=== PATIENT | female | born 1935 | race Caucasian/White ===

== ENCOUNTER 2017-10-03 23:22 | Inpatient (IN) | payer MEDICARE ==
[2017-10-04] MEDS ORDERED: Albuterol Sulfate 2.5 mg/0.5 ml Neb ONE (00:36)
[2017-10-04] MEDS ORDERED: Azithromycin 500 MG in Sodium Chloride 0.9% 250 ML 250 ML IVPB SCH (00:45)
[2017-10-04 00:55] LABS: #Lymphocytes 0.3 thou/uL (1.20-3.40); #Monocytes 0.3 thou/uL (0.11-0.59); #Neutrophils 15.8 thou/uL (1.40-6.50); %Eosinophils 0.1 % (0.0-10.0); %Lymphocytes 1.6 % (21.0-51.0); %Monocytes 2.1 % (0.0-10.0); %Neutrophils 96.3 % (42.0-75.0); Hemoglobin 10.9 g/dL (12.0-16.0); Mean Corpuscular HGB CONC 30.5 g/dL (32.0-36.0); Mean Corpuscular Hemoglobin 26.4 pg (27.0-31.0); Mean Corpuscular Volume 86.5 fl (81.0-99.0); Mean Platelet Volume 6.2 fL (7.4-10.4); Platelet Count 349 thou/uL (130-400); RBC Distribution Width 12.5 % (11.5-14.5); Red Blood Cell (RBC) Count 4.14 mill/uL (4.20-5.40); White Blood Cell (WBC) Count 16.4 thou/uL (4.8-10.8)
[2017-10-04 01:05] LABS: ALT (SGPT) 19 U/L (8-55); AST (SGOT) 47 U/L (5-34); Albumin 3.5 g/dL (3.4-4.8); Alkaline Phosphatase 65 U/L (40-150); Anion Gap 16 mmol/L (10-20); BUN (Urea Nitrogen) 17 mg/dL (9.8-20.1); Bilirubin, Total 0.2 mg/dL (0.2-1.2); Calc. Creatinine Clearance 0 mL/min (70-130); Calcium 9.2 mg/dL (7.8-10.44); Carbon Dioxide 25 mmol/L (23-31); Chloride 97 mmol/L (98-107); Estimated GFR-MDRD 64; Globulin 3.3 g/dL (2.4-3.5); Glucose 112 mg/dL (83-110); Magnesium 1.9 mg/dL (1.6-2.6); Potassium 3.9 mmol/L (3.5-5.1); Protein, Total 6.8 g/dL (6.0-8.3); Sodium 134 mmol/L (136-145)
[2017-10-04 01:09] LABS: Troponin I 0.039 ng/mL (< 0.028)
[2017-10-04 01:12] LABS: CKMB 8.6 ng/mL (0-6.6)
[2017-10-04] MEDS ORDERED: Acetaminophen 325 MG TAB ONE (03:59)
[2017-10-04 04:43] LABS: Troponin I 0.033 ng/mL (< 0.028)
[2017-10-04] MEDS ORDERED: Acetaminophen 325 MG TAB PO PRN (05:25)
[2017-10-04] MEDS ORDERED: Albuterol Sulfate 2.5 mg/3 ml Neb NEB PRN (05:25)
[2017-10-04] MEDS ORDERED: Ondansetron HCl/PF 4 MG/2 ML Vial IVP PRN (05:25)
[2017-10-04] MEDS ORDERED: Ondansetron ODT 4 MG TAB SL PRN (05:25)
[2017-10-04] MEDS ORDERED: cefTRIAXone\\ROCEPHIN 1 GM, Syringe 0.4 ML in Sterile Water 9.6 ML SLOW IVP SCH (06:00)
--- NOTE | 2017-10-04 08:02 | CT ---
PRELIMINARY REPORT/[facility]/EMERGENCY AFTER HOURS PROCEDURE: EXAM: CT Head Without Intravenous Contrast CLINICAL HISTORY: 82 years old, female; Injury or trauma; Fall; Initial encounter; Blunt trauma (contusions or hematoma s); Consciousness not specified; Patient HX: S/P fall TECHNIQUE: Axial computed tomography images of the head/brain without intravenous contrast. COMPARISON: No relevant prior studies available. FINDINGS: Brain: Mild volume loss No hemorrhage. Mild white matter disease. No edema. Ventricles: Unremarkable. No ventriculomegaly. Bones/joints: Unremarkable. No acute fracture. Soft tissues: Unremarkable. Sinuses: Chronic right maxillary sinusitis with small air fluid level noted. Mild polypoid tissue the right ethmoid air cells and left sphenoid sinus Mastoid air cells: Unremarkable as visualized. No mastoid effusion. IMPRESSION: Question acute on chronic right maxillary sinusitis No intracranial hemorrhage.Please see discussion above. Thank you for allowing us to participate in the care of your patient. Dictated and Authenticated by: Stef Schilling MD 10/04/2017 2:11 AM Central Time ([place] & [place]) FINAL REPORT EMERGENT AFTER HOURS STUDY CT BRAIN NONCONTRAST: HISTORY: An 82-year-old female status post acute head trauma from fall. FINDINGS: There is no midline shift or any other mass effect. There is no evidence of acute intracranial hemor rhage, large cortical infarct, obstructive hydrocephalus, or extraaxial fluid collection. The calvar ium is intact. There is diffuse parenchymal volume loss. There are low attenuation areas in the whi te matter. These are nonspecific, but in a patient of this age, they are probably chronic ischemic w ty matter changes due to microvascular atherosclerosis. There is chronic severe partial opacificat ion of the right maxillary sinus with associated chronic osseous mural thickening of the vela of the right maxillary sinus. This report agrees with preliminary report by [facility]. IMPRESSION: 1) No acute intracranial findings. 2) Involutional changes and chronic ischemic white matter changes. 3) Long-standing chronic right maxillary sinusitis. orlin [] POS: [facility]
--- NOTE | 2017-10-04 08:05 | CT ---
PRELIMINARY REPORT/[facility]/EMERGENCY AFTER HOURS PROCEDURE: EXAM: CT Cervical Spine Without Intravenous Contrast CLINICAL HISTORY: 82 years old, female; Injury or trauma; Fall; Initial encounter; Blunt trauma (contusions or hematoma s); Consciousness not specified; Patient HX: S/P fall TECHNIQUE: Axial computed tomography images of the cervical spine without intravenous contrast. COMPARISON: No relevant prior studies available. FINDINGS: Vertebrae: Loss of vertebral body height, presumed degenerative No acute fracture. Discs/spinal canal/neural foramina: No acute findings. Mild spinal canal stenosis at C3-C4 and C6-C7. Soft tissues: Unremarkable. Lung apices: Unremarkable as visualized. IMPRESSION: No definite acute cervical fracture observed Thank you for allowing us to participate in the care of your patient. Dictated and Authenticated by: Stef Schilling MD 10/04/2017 2:11 AM Central Time ([place] & [place]) FINAL REPORT EMERGENT AFTER HOURS STUDY: CT CERVICAL SPINE NONCONTRAST: HISTORY: An 82-year-old female status post acute cervical trauma from fall. FINDINGS: There are no jumped or perched facets. There is no evidence of acute fracture. The vertebral body h eights are maintained. There is no prevertebral soft tissue swelling. There are degenerative disc c hanges and facet osteoarthrosis. IMPRESSION: 1) Cervical spondylosis. 2) No evidence of acute fracture or acute traumatic subluxation. orlin [] POS: [facility]
[2017-10-04 08:11] LABS: Troponin I 0.028 ng/mL (< 0.028)
--- NOTE | 2017-10-04 08:14 | RAD ---
LEFT SHOULDER THREE VIEWS: History: Fall. Comparison: None. FINDINGS: Ribs are intact. No displace fracture of the left shoulder. Mild degenerative disease of the acromioc lavicular joint. IMPRESSION: No acute fracture or malalignment. POS: [facility]
--- NOTE | 2017-10-04 09:10 | RAD ---
CHEST 1 VIEW: HISTORY: Shortness of breath. COMPARISON: None. FINDINGS: Lungs are mildly hyperinflated. There are chronic-appearing changes in the lung bases. Cardiac silh ouette and mediastinal contours are within normal limits. No acute osseous abnormality. No displace d rib fractures appreciated. IMPRESSION: No acute intrathoracic abnormality. POS: [facility]
[2017-10-04] MEDS ORDERED: hydrALAZINE 20 MG/ML VIAL SLOW IVP PRN (09:37)
[2017-10-04] MEDS ORDERED: cloNIDine 0.1 MG TAB PO PRN (09:37)
[2017-10-04] MEDS ORDERED: Ondansetron ODT 4 MG TAB PO PRN (09:37)
[2017-10-04] MEDS: Benzonatate 100 MG CAP PO PRN ×2 (10:04→16:13)
[2017-10-04] MEDS: Acetaminophen 500 MG TAB PO PRN (10:04)
[2017-10-04] MEDS: Sodium Chloride 0.9% 1,000 ML IV SCH ×2 (10:05→20:29)
--- NOTE | 2017-10-04 11:16 | HP ---
DATE OF ADMISSION: 10/04/2017 PRIMARY CARE PHYSICIAN: Dr. Thomas. CHIEF COMPLAINT: Cough and weakness. HISTORY OF PRESENT ILLNESS: This is an 82-year-old female, who presents to [facility] and transfer from [facility] after complaints of general weakn ess, fall, and increased cough and congestion. The patient states she has had increased cough, short ness of breath, and increased oxygen use over the last 3-4 days prior to this evaluation of progressi ve weakness over the same time period. The patient states the weakness became profound where she was unable to get out of her chair and slid off a ottoman in her home, hitting a table in her bedroom. The patient states she was unable to get off the floor for approximately 2 hours, at which point her came and found her, notifying EMS personnel. The patient denies any specific head injury, bu t states general weakness confirmed by her . The notes progressive weakness over a mo nths' time frame with decreased activity level, use of a rolling walker for short distance ambulation , decreased appetite, and progressive oxygen use. The patient has been on oxygen therapy over the 4+ years due to severe chronic obstructive pulmonary disease. Patient has been recently seen by aRcquel Malone with Infectious Disease Service and placed on inhaled gentamicin for undisclosed pulmonary i nfection. The patient reports a several prescriptions and inhaled medications including Brovana, Com bivent, Respimat, gentamicin, and budesonide. Patient did state she received the influenza and pneum onia vaccination and denied any specific exposure history. The patient's denies any recent p ulmonary infection or pneumonia or influenza. In the emergency room, the patient underwent chest estela ging showing questionable infiltrate of the right lower lobe concerning for pneumonia. The patient w as also screened with a nasal swab positive for influenza B. The patient received IV Rocephin, [facility] hodilator therapy with DuoNebs, and intravenous fluids. The patient also received IV azithromycin an d albuterol sulfate nebulized solution. The patient was referred to the Hospitalist Service for eval uation. PAST MEDICAL HISTORY: 1. Chronic hypoxemic respiratory failure with chronic oxygen supplementation at 3-4 liters per minut e by nasal cannula. 2. Chronic back pain. 3. Question of migraine headaches. 4. Question of pulmonary infection with MAC, Mycobacterium avium complex. 5. Deconditioning. 6. History of falls. 7. Anorexia. PAST SURGICAL HISTORY: 1. Status post appendectomy. 2. Status post hysterectomy. CURRENT MEDICATIONS: 1. Brovona 15 mcg per 2 mL nebulized b.i.d. 2. Budesonide 0.5 mg per 2 mL nebulized b.i.d. 3. Gentamicin 80 mg per 2 mL nebulized b.i.d. 4. Combivent metered dose inhaler 1 puff inhaled t.i.d. 5. Tramadol 50 mg p.o. q.6 hours p.r.n. pain. KNOWN ALLERGIES: PENICILLIN G and CODEINE. FAMILY HISTORY: Positive for hypertension. SOCIAL HISTORY: The patient is and resides in [place], [place]. Retired. Former tobacco us e, quitting in 2008. No alcohol or illicit drug use. Ambulates with the use of a rolling walker for short distances. History of falls. REVIEW OF SYSTEMS: The following complete review of systems was negative, unless otherwise mentioned in the HPI or below: Constitutional: Weight loss or gain, ability to conduct usual activities. Skin: Rash, itching. Eyes: Double vision, pain. ENT/Mouth: Nose bleeding, neck stiffness, pain, tenderness. Cardiovascular: Palpitations, dyspnea on exertion, orthopnea. Respiratory: Shortness of breath, whee zing, cough, hemoptysis, fever or night sweats. Gastrointestinal: Poor appetite, abdominal pain, hea rtburn, nausea, vomiting, constipation, or diarrhea. Genitourinary: Urgency, frequency, dysuria, noc turia. Musculoskeletal: Pain, swelling. Neurologic/Psychiatric: Anxiety, depression. Allergy/Immun ologic: Skin rash, bleeding tendency. Otherwise, negative except as stated per HPI. PHYSICAL EXAMINATION: VITAL SIGNS: On admission, blood pressure 134/63, pulse 98, respiratory rate 18, temperature 98.6 d egrees Fahrenheit, O2 saturation 99% on 4 liters per minute by nasal cannula. GENERAL APPEARANCE: This is an 82-year-old female, frail and ill-appearing HEENT: Pupils are equal, round, and reactive to light and accommodation. Extraocular muscles are in tact. No scleral icterus, no conjunctival injection. Nares patent. OP is clear. Oral mucosa is dr y. NECK: Supple, no cervical adenopathy, no thyromegaly, no carotid bruits, no JVD appreciated. Cervic al spine with full active and passive range of motion. CHEST: Diminished breath sounds in bilateral lung dudley with coarse breath sounds throughout. CARDIOVASCULAR: S1 and S2, without noted murmur. Heart sounds are distant. ABDOMEN: Rounded, soft, nontender, nondistended. Bowel sounds are positive in all four quadrants. There is no hepatosplenomegaly, no abdominal bruits, no rebound or guarding appreciated. EXTREMITIES: Warm and dry with fair turgor. No clubbing, cyanosis, or asymmetric edema appreciated. Pulses are palpable distally at the dorsalis pedis, posterior tibial, and popliteal arteries bilate rally. Capillary refill less than 2 seconds. NEUROLOGIC: Cranial nerves II-XII are grossly intact. No focal or lateralizing signs appreciated. The patient not observed ambulatory during this exam. PERTINENT LABORATORY AND X-RAY FINDINGS: Sodium 134, potassium 3.9, chloride 97, CO2 of 25, BUN 17, creatinine 0.85, estimated GFR 64, glucose 112, calcium 9.2, magnesium 1.9, AST 47, ALT of 19, alkali ne phosphatase 65. Total CK of 1542. Troponin I ranged between 0.028 and 0.039. Albumin 3.5. CBC showed a white blood cell count of 16.4, hemoglobin 11, hematocrit 36, and platelet count 349 with 96 % neutrophils. Influenza B antigen positive. Portable chest x-ray dated 10/04/2017 showed hyperinflation of bilateral lung dudley. Chronic change s in the lung bases. No specific infiltrate; however, questionable subtle early infiltrate of the ri ght middle lobe. CT of the brain without contrast dated 10/04/2017 showed acute on chronic right max illary sinusitis. No acute intracranial process. CT of cervical spine dated 10/04/2017 showed no ev idence of fracture or dislocation. Three views of the left shoulder dated 10/04/2017 showed no evide nce of fracture or dislocation. Mild degenerative changes noted. EKG dated 10/04/2017 by my interpr etation shows sinus mechanism with heart rates in the 80s. Normal R-wave progression noted in the pr ecordial leads. Normal axis. No acute ST-T wave changes appreciated. ASSESSMENT AND PLAN: 1. Acute on chronic hypoxemic respiratory failure. Multifactorial given patient's severe chronic ob structive pulmonary disease on chronic oxygen supplementation at 3-4 liters per minute by nasal cannu la. Suspect worsening secondarily to #2. See #2 for management details. Continue oxygen supplement ation to maintain O2 saturations greater than or equal to 90%. 2. Question of early right middle lobe pneumonia. Suspected gram positive cocci. Subtle changes on a portable chest x-ray. Continue Levaquin 750 mg IV q.24 hours with additional cefepime 2 grams IV q.12 hours. Continue DuoNebs q.4 hours. 3. Influenza B positive. We will initiate Tamiflu was 75 mg p.o. b.i.d. Continue general pulmonary supportive measures. Respiratory isolation. 4. Chronic obstructive pulmonary disease with questionable exacerbation. We will continue bronchodi lator therapy with DuoNebs as stated previously. Add Solu-Medrol 40 mg IV q.6 hours. Continue Brova na inhaled b.i.d. Continue budesonide nebulized solution 0.5 mg b.i.d. 5. Dehydration. We will continue intravenous normal saline at 100 mL per hour. Encourage increased free water intake. 6. Rhabdomyolysis. Mild, secondary to recent fall. Continue IV fluids as outlined previously. Rep eat total CK level in the a.m. 7. Severe deconditioning with falls. Physical therapy and occupational therapy evaluation in the a. m. The patient may benefit from inpatient rehabilitation after discharge. 8. Prophylaxis. Sequential compression devices while in bed. Pepcid 20 mg p.o. b.i.d. Physical th erapy and occupational therapy evaluation. 9. Code status is FULL. Surrogate medical decision maker is patient's spouse.
--- NOTE | 2017-10-04 11:19 | CON ---
DATE OF CONSULTATION: 10/04/2017 This is an 82-year-old female from [place], [place] normally goes to [facility] for care. She was trans ferred here by her nurse practitioner with influenza B and presumed pneumonia and COPD exacerbation. She smoked a pack and a half almost 40 years and quit in 2008. Most days, she can barely walk even 20 feet without getting markedly short of breath. Her home medicine included Brovana twice a day, Co mbivir and gentamicin 160 mg nebulized 2 times a day for a month and Symbicort 0.5. Apparently, the states she has got some kind of infection of the lung diagnosed by her pulmon ologist at [facility]. She presented with coughing up some sputum that appears to be relatively clear. PAST MEDICAL HISTORY: Otherwise pertinent for COPD, frequent infection. No history of diabetes or hypertension. PAST SURGICAL HISTORY: None recently. MEDICATIONS: Her medicine from home as noted above, nebulized gentamicin, tramadol, Pulmicort, Brova na. Since admission, she is on Tamiflu, Levaquin, Maxipime, Brovana, neb treatments, steroids. SOCIAL/FAMILY HISTORY: Unremarkable. REVIEW OF SYSTEMS: Ten point negative. PHYSICAL EXAMINATION: VITAL SIGNS: Sats are 100% on 4 liters, temperature 98, blood pressure 123/59. CHEST: Chest revealed extensive rhonchi and crackles. CARDIAC: Normal S1-S2. ABDOMEN: Soft. No masses. LABORATORY DATA: White count 16,000, H&H 12 and 35, platelet count 349. Electrolytes are normal. T roponin is 0.03. CK-MB is 86. X-ray shows no acute infiltrates. She had a CT of the head, may be chronic sinusitis which was negative otherwise. Cervical spine CT w as done apparently because of a fall. No acute fracture was seen. IMPRESSION: 1. Chronic obstructive pulmonary disease exacerbation, bronchitis. 2. Former smoker. 3. No evidence of pneumonia. 4. Influenza B. PLAN: I agree with broad-spectrum antibiotics, Levaquin, Maxipime and steroids. I added Dulera to her present treatment. Hopefully, once she is stabilized, she can be sent back to her primary care physician for care. I will follow while in the hospital. This is a consultation note, 70 minutes out of which 50% is spent with direct patient care.
[2017-10-04] MEDS: Ketorolac Tromethamine 30 MG/ML VIAL IVP SCH ×3 (11:42→23:29)
[2017-10-04] MEDS: Oseltamivir 75 MG CAP PO SCH ×2 (11:51→23:31)
[2017-10-04] MEDS: Aspirin/APAP/Caffeine Tab (Excedrin Migraine) PO PRN (14:49)
[2017-10-04] MEDS: Budesonide 0.5 MG/2 ML NEB NEB SCH (19:01)
[2017-10-04] MEDS: Mometasone/Formoterol 120 PUFF INHALER INH SCH (19:20)
[2017-10-04] MEDS: Famotidine 20 MG TAB PO SCH (20:29)
[2017-10-04] MEDS: Gentamicin 80 MG/2 ML VIAL IRR SCH (20:29)
[2017-10-04] MEDS: traMADol HCl 50 MG TAB PO PRN (20:35)
[2017-10-04] MEDS ORDERED: Cefepime 2 GM in Sodium Chloride 0.9% 100 ML IVPB SCH (21:00)
[2017-10-04] MEDS ORDERED: Arformoterol 15 MCG/2 ML NEB NEB SCH (21:00)
--- NOTE | 2017-10-04 21:15 | CON ---
DATE OF CONSULTATION: 10/04/2017 REASON FOR CONSULTATION: Influenza B infection with decompensation of COPD. HISTORY OF PRESENT ILLNESS: An 82-year-old with a history of COPD with chronic bronchiectasis previously seen at [facility] where she had a bronchoscopy. I believe last year, the sampling showed Pseudomonas aeruginosa and patient had been receiving gentamicin inhalations for prevention of decompensation. The patient had been admitted previously a few times to [facility] for management of such decompensation. The patient at this time developed worsening cough, congestion, weakness, anorexia, and eventually brought to [place] ER where she was tested for influenza B positive from nasal swab. She has been admitted and has been receiving IV antimicrobial therapy. Currently she appears in respiratory distress, coughing frequently with little sputum production. No headaches, no sore throat, no vomiting, chest pain or back pain. No abdominal pain or diarrhea, genitourinary symptoms. 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 Prior bronchoscopy a few months ago at [facility], chronic nebulization with gentamicin for prevention of recrudescence of pneumonia, falls, anorexia. PAST SURGICAL HISTORY: Appendectomy, hysterectomy. MEDICATIONS: Currently receiving Tylenol, caffeine, DuoNeb, Brovana, Tessalon, Pulmicort, cefepime 2 grams q.12 hours, clonidine, Pepcid, gentamicin looks like it is an inhalation protocol, Apresoline, Toradol, levofloxacin, methylprednisolone, and oseltamivir, tramadol. FAMILY HISTORY: Hypertension. ALLERGIES: PENICILLIN with skin rash, CODEINE with mostly GI symptoms. SOCIAL HISTORY: Lives in [place]. Retired. Former smoker, quit in 2008. PHYSICAL EXAMINATION: VITAL SIGNS: T-max 98.8, blood pressure 120/79, pulse 98, respirations 26, O2 sat 98-99% on 4 liters. SKIN: With no areas of skin breakdown. The patient is voiding spontaneously. The only IV access is a peripheral access. No lymphadenopathy, appears in no acute distress, some element of temporal wasting. Oral cavity is moist. Ocular movements are conjugate. Conjunctivae normal. Pupils are reactive. NECK: With accessory muscle use. Supple neck. No jugular vein distention. LUNGS: With scattered rhonchi. Expiratory wheezing noted as well. ABDOMEN: Soft, not distended. EXTREMITIES: No joint inflammatory activity. No edema. Pulses are 1+ in dorsalis pedis, able to move all extremities equally. NEUROLOGIC: Cognitive function appears to be intact. LABORATORY DATA: White cell count 16.4, hemoglobin 10.9, platelets 349, neutrophils. Sodium 134, creatinine 0.85, AST 47, ALT 19, alkaline phosphatase 65, albumin 3.5. The patient had a brain, C-spine, and shoulder x-ray which did not show any fractures and there is a chest x-ray with chronic changes, hyperinflation of lungs, chronic appearing change at lung bases. ASSESSMENT: Chronic obstructive pulmonary disease with bronchiectasis and now influenza B infection with decompensation. Patient has been started on broad spectrum coverage including Tamiflu, still struggling and may need more aggressive support Pulmonary Medicine consultation. [facility]
[2017-10-04] MEDS: Cefepime 2 GM, Syringe 2.5 ML in Sterile Water 10 ML SLOW IVP SCH (21:37)
[2017-10-05] MEDS: Sodium Chloride 0.9% 1,000 ML IV SCH ×2 (04:10→19:12)
[2017-10-05] MEDS: Acetaminophen 500 MG TAB PO PRN ×2 (04:20→22:46)
[2017-10-05] MEDS: traMADol HCl 50 MG TAB PO PRN ×2 (04:21→22:46)
[2017-10-05] MEDS: Ketorolac Tromethamine 30 MG/ML VIAL IVP SCH ×3 (05:48→19:03)
[2017-10-05] MEDS: Arformoterol 15 MCG/2 ML NEB NEB SCH ×3 (06:13→18:50)
[2017-10-05 06:44] LABS: ALT (SGPT) 31 U/L (8-55); AST (SGOT) 87 U/L (5-34); Alkaline Phosphatase 65 U/L (40-150); Anion Gap 13 mmol/L (10-20); BUN (Urea Nitrogen) 15 mg/dL (9.8-20.1); Bilirubin, Total 0.2 mg/dL (0.2-1.2); CK (CPK) 1718 U/L (29-168); Calc. Creatinine Clearance 57 mL/min (70-130); Calcium 8.8 mg/dL (7.8-10.44); Carbon Dioxide 25 mmol/L (23-31); Chloride 99 mmol/L (98-107); Estimated GFR-MDRD 81; Globulin 2.8 g/dL (2.4-3.5); Glucose 106 mg/dL (83-110); Potassium 4.2 mmol/L (3.5-5.1); Protein, Total 5.8 g/dL (6.0-8.3); Sodium 133 mmol/L (136-145)
[2017-10-05 06:48] LABS: Hemoglobin 9.4 g/dL (12.0-16.0); Mean Corpuscular Hemoglobin 26.8 pg (27.0-31.0); Mean Corpuscular Volume 86.4 fl (81.0-99.0); Mean Platelet Volume 6.4 fL (7.4-10.4); Platelet Count 309 thou/uL (130-400); RBC Distribution Width 12.3 % (11.5-14.5); Red Blood Cell (RBC) Count 3.51 mill/uL (4.20-5.40); White Blood Cell (WBC) Count 16.7 thou/uL (4.8-10.8)
[2017-10-05] MEDS: Mometasone/Formoterol 120 PUFF INHALER INH SCH ×2 (08:04→18:59)
[2017-10-05] MEDS: Cefepime 2 GM, Syringe 2.5 ML in Sterile Water 10 ML SLOW IVP SCH ×2 (08:50→19:52)
[2017-10-05] MEDS: Famotidine 20 MG TAB PO SCH ×2 (08:51→19:51)
[2017-10-05 08:52] LABS: Band 19 % (5-11); Eosinophils 1 % (0-10); Lymphocytes 4 % (21-51); MDiff Complete? YES; Monocytes 2 % (0-10); Neutrophil 74 % (42-75); RBC Morphology Normal
[2017-10-05] MEDS: Gentamicin 80 MG/2 ML VIAL IRR SCH ×2 (09:12→20:58)
--- NOTE | 2017-10-05 09:21 | PRG ---
DATE OF SERVICE: 10/05/2017 Ms. Glass is awake, alert, responsive. Sore throat, cough. PHYSICAL EXAMINATION: VITAL SIGNS: Blood pressure 153/78, sats 99% on 2 liters. Temperature 98. CHEST: Chest revealed extensive rhonchi and crackles. CARDIAC: Normal S1-S2. No gallops. ABDOMEN: Soft. No masses. LABORATORY: White count 16,000, H&H 9 and 30, platelet count normal. Electrolytes are normal. IMPRESSION: 1. Influenza B. 2. Bronchitis. 3. Chronic obstructive pulmonary disease. 4. Colonization. PLAN: Continue neb treatments, antibiotics, Tamiflu, supportive care and PT. I will follow.
[2017-10-05] MEDS: Aspirin/APAP/Caffeine Tab (Excedrin Migraine) PO PRN ×2 (10:43→19:05)
[2017-10-05] MEDS: Cepastat Lozenges 1 LOZ PO PRN ×3 (10:43→21:58)
[2017-10-05] MEDS: Budesonide 0.5 MG/2 ML NEB NEB SCH ×2 (11:57→18:00)
[2017-10-05] MEDS: Oseltamivir 75 MG CAP PO SCH (12:42)
--- NOTE | 2017-10-05 13:25 | RAD ---
AP CHEST: Indication: History of pneumonia. Comparison: 10-04-17 FINDINGS: No airspace consolidation is evident. Cardiomegaly changes are similar. No pleural effusion or pneumo thorax evident. IMPRESSION: No acute abnormality. POS: [facility]
[2017-10-05] MEDS: ALPRAZolam 0.25 MG TAB PO PRN (13:40)
--- NOTE | 2017-10-05 17:42 | PDOC.PN ---
- Subjective Encounter Start Date: 10/05/17 Encounter Start Time: 17:30 Subjective: f/u for acute hypoxic resp failure, Influenza B+ and chronic bronchiectasis -: Receiving Cefepime and Levaquin with Tamiflu. Still SOB and requires -: intermittent BiPAP. - Objective MAR Reviewed: Yes Vital Signs & Weight: Vital Signs (12 hours) Temp Pulse Pulse Pulse Resp BP BP 10/05/17 16:08 100 28 H 10/05/17 12:00 98.6 F 112 H 36 H 10/05/17 11:56 91 25 H 10/05/17 10:49 98 85 154/87 H 158/91 H 10/05/17 08:00 98.7 F 110 H 12 10/05/17 07:55 10/05/17 07:52 88 20 BP BP Pulse Ox Pulse Ox Pulse Ox Pulse Ox 10/05/17 16:08 99 10/05/17 12:00 165/110 H 98 10/05/17 11:56 98 10/05/17 10:49 158/107 H 100 100 100 10/05/17 08:00 166/87 H 94 L 10/05/17 07:55 99 10/05/17 07:52 99 Weight Admit Weight 123 lb 12.8 oz Weight 126 lb 8 oz I&O: 10/04/17 10/05/17 10/06/17 06:59 06:59 06:59 Intake Total 3520 Output Total 1025 Balance 2495 Result Diagrams: 10/05/17 05:50 10/05/17 05:50 Radiology Reviewed by me: Yes (PCXR - no acute infiltrate, chronic changes) EKG Reviewed by me: Yes (Tele - sinus tachycardia in 105's) Phys Exam - Physical Examination Constitutional: NAD alert, mod resp distress HEENT: PERRLA, oral pharynx no lesions Neck: no JVD, supple diminished in bilat dudley, exp wheezing tachycardic Gastrointestinal: soft, non-tender, no distention, positive bowel sounds Musculoskeletal: no edema, pulses present Neurological: normal sensation, moves all 4 limbs Psychiatric: A&O x 3 Skin: normal turgor, cap refill <2 seconds Dx/Plan (1) Acute and chronic respiratory failure with hypoxia Code(s): J96.21 - ACUTE AND CHRONIC RESPIRATORY FAILURE WITH HYPOXIA Status: Acute Comment: Continue aggressive pulmonary support, BiPAP not tolerated by pt, change Duonebs q2h, MgSO4 2gm IV x 1 now, titrate O2 to response (2) Influenza B Code(s): J10.1 - FLU DUE TO OTH IDENT INFLUENZA VIRUS W OTH RESP MANIFEST Status: Acute Comment: Continue Tamiflu 75mg BID, resp isolation (3) Bronchiectasis Code(s): J47.9 - BRONCHIECTASIS, UNCOMPLICATED Status: Chronic Comment: Hx of ? chronie Pseudomonas infection, continue tx as outlined above, continue Gentamicin 80mg inh BID (4) Rhabdomyolysis Code(s): M62.82 - RHABDOMYOLYSIS Status: Acute (5) Fall Code(s): W19.XXXA - UNSPECIFIED FALL, INITIAL ENCOUNTER Status: Acute Comment: PT for functional assessment and mobilization (6) Severe muscle deconditioning Code(s): R29.898 - OTH SYMPTOMS AND SIGNS INVOLVING THE MUSCULOSKELETAL SYSTEM Status: Chronic Comment: SNF/rehab options - Plan continue antibiotics, PT/OT, school social worker, respiratory therapy, out of bed/ ambulate, DVT proph w/SCDs Stable overall -: Continue Duonebs, Solumedrol, Brovana -: Change Duonebs q2h -: Magnesium Sulfate 2gm IV x 1 now -: BiPAP prn * .
[2017-10-05] MEDS ORDERED: Magnesium 2 GM/NS 0.9% 100 ML 2 GM in Premix Bag 1 BAG IVPB SCH (18:15)
[2017-10-05] MEDS: Benzonatate 100 MG CAP PO PRN (21:04)
[2017-10-06] MEDS: Oseltamivir 75 MG CAP PO SCH ×2 (00:02→12:26)
[2017-10-06] MEDS: ALPRAZolam 0.25 MG TAB PO PRN ×2 (02:45→09:44)
[2017-10-06] MEDS: Acetaminophen 500 MG TAB PO PRN ×2 (05:06→21:00)
[2017-10-06] MEDS: traMADol HCl 50 MG TAB PO PRN ×2 (05:06→21:01)
[2017-10-06 05:35] LABS: Band 4 % (5-11); Hemoglobin 9.9 g/dL (12.0-16.0); Lymphocytes 1 % (21-51); MDiff Complete? YES; Mean Corpuscular Hemoglobin 26.9 pg (27.0-31.0); Mean Corpuscular Volume 86.8 fl (81.0-99.0); Mean Platelet Volume 6.5 fL (7.4-10.4); Monocytes 4 % (0-10); Neutrophil 91 % (42-75); PLT Morphology Comment Appears Adequate; Platelet Count 312 thou/uL (130-400); RBC Distribution Width 12.7 % (11.5-14.5); Red Blood Cell (RBC) Count 3.67 mill/uL (4.20-5.40); White Blood Cell (WBC) Count 15.3 thou/uL (4.8-10.8)
[2017-10-06 05:43] LABS: Anion Gap 11 mmol/L (10-20); BUN (Urea Nitrogen) 15 mg/dL (9.8-20.1); CK (CPK) 1333 U/L (29-168); Calc. Creatinine Clearance 56 mL/min (70-130); Calcium 9.1 mg/dL (7.8-10.44); Carbon Dioxide 30 mmol/L (23-31); Chloride 98 mmol/L (98-107); Estimated GFR-MDRD 78; Glucose 149 mg/dL (83-110); Potassium 3.2 mmol/L (3.5-5.1); Sodium 136 mmol/L (136-145)
[2017-10-06] MEDS: Arformoterol 15 MCG/2 ML NEB NEB SCH (06:25)
[2017-10-06] MEDS: Budesonide 0.5 MG/2 ML NEB NEB SCH ×2 (06:25→18:42)
[2017-10-06] MEDS: Ketorolac Tromethamine 30 MG/ML VIAL IVP SCH ×4 (06:41→17:49)
[2017-10-06] MEDS: Mometasone/Formoterol 120 PUFF INHALER INH SCH ×2 (06:46→18:42)
--- NOTE | 2017-10-06 08:10 | RAD ---
SINGLE VIEW CHEST: Date: 10/06/17 COMPARISON: 10/05/17. HISTORY: Pneumonia. FINDINGS: Single view of the chest shows a normal sized cardiomediastinal silhouette. There is no evidence of c onsolidation, mass, or pleural effusion. Mild degenerative changes are seen in the spine. IMPRESSION: No evidence of acute cardiopulmonary disease. POS: [facility]
--- NOTE | 2017-10-06 09:33 | PRG ---
DATE OF SERVICE: 10/06/2017 This morning she is still having shortness of breath and headache. PHYSICAL EXAMINATION: VITAL SIGNS: Sats are 100% on 3 liters, respirations 20, temperature 97, blood pressure 150/93. CHEST: Chest revealed decreased breath sounds without any wheezing. CARDIAC: Normal S1-S2. ABDOMEN: Soft, no masses. IMPRESSION: 1. Influenza B. 2. Chronic obstructive pulmonary disease exacerbation. 1. Bronchitis. PLAN: She is getting neb treatments q. 2h. She is getting steroids 40 q.6h., Mucinex, antibiotics. Maximal support. She is going to continue the above treatment. When she is better switch her over t o prednisone, PT and supportive care. I will follow.
[2017-10-06] MEDS: Gentamicin 80 MG/2 ML VIAL IRR SCH ×2 (09:42→20:05)
[2017-10-06] MEDS: Benzonatate 100 MG CAP PO PRN ×3 (09:44→21:01)
[2017-10-06] MEDS: Aspirin/APAP/Caffeine Tab (Excedrin Migraine) PO PRN ×2 (09:44→14:31)
[2017-10-06] MEDS: Famotidine 20 MG TAB PO SCH ×2 (09:44→20:04)
[2017-10-06] MEDS: Sodium Chloride 0.9% 1,000 ML IV SCH (09:45)
[2017-10-06] MEDS: Cefepime 2 GM, Syringe 2.5 ML in Sterile Water 10 ML SLOW IVP SCH ×2 (09:49→20:03)
--- NOTE | 2017-10-06 14:27 | PDOC.PN ---
- Subjective Encounter Start Date: 10/06/17 Encounter Start Time: 14:20 Subjective: f/u for acute/chronic hypoxic resp failure, chronic bronchitis and -: Influenza. Still coughing, +RICHARDSON. Appetite diminished. - Objective MAR Reviewed: Yes Vital Signs & Weight: Vital Signs (12 hours) Temp Pulse Resp BP BP BP Pulse Ox 10/06/17 13:07 97 28 H 95 10/06/17 11:59 98.6 F 83 19 162/85 H 100 10/06/17 11:25 98 28 H 99 10/06/17 09:56 158/80 H 155/81 H 10/06/17 09:06 100 28 H 99 10/06/17 08:00 97.9 F 94 24 H 100 10/06/17 07:23 97.9 F 94 20 158/93 H 100 10/06/17 06:26 99 10/06/17 06:23 87 21 H 99 10/06/17 04:00 98.4 F 92 18 131/91 H 100 10/06/17 02:50 90 22 H 100 Pulse Ox Pulse Ox 10/06/17 13:07 10/06/17 11:59 10/06/17 11:25 10/06/17 09:56 98 95 10/06/17 09:06 10/06/17 08:00 10/06/17 07:23 10/06/17 06:26 10/06/17 06:23 10/06/17 04:00 10/06/17 02:50 Weight Admit Weight 123 lb 12.8 oz Weight 130 lb 3 oz I&O: 10/05/17 10/06/17 10/07/17 06:59 06:59 06:59 Intake Total 3520 4650 Output Total 1025 2330 Balance 2495 2320 Result Diagrams: 10/06/17 04:47 10/06/17 04:47 Radiology Reviewed by me: Yes (PCXR - no acute process) EKG Reviewed by me: Yes (Tele - Sinus tach in low 100's) Phys Exam - Physical Examination awake, + dyspnea, anxious HEENT: PERRLA, oral pharynx no lesions Neck: no JVD, supple diminished in bases, occasional wheezing tachycardic Gastrointestinal: soft, non-tender, no distention, positive bowel sounds Neurological: non-focal, normal sensation, moves all 4 limbs Skin: normal turgor, cap refill <2 seconds Dx/Plan (1) Acute and chronic respiratory failure with hypoxia Code(s): J96.21 - ACUTE AND CHRONIC RESPIRATORY FAILURE WITH HYPOXIA Status: Acute Comment: Continue aggressive pulmonary support, BiPAP not tolerated by pt, change Duonebs q2h, MgSO4 2gm IV x 1 now, titrate O2 to response (2) Influenza B Code(s): J10.1 - FLU DUE TO OTH IDENT INFLUENZA VIRUS W OTH RESP MANIFEST Status: Acute Comment: Continue Tamiflu 75mg BID, resp isolation (3) Bronchiectasis Code(s): J47.9 - BRONCHIECTASIS, UNCOMPLICATED Status: Chronic Comment: 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, continue tx as outlined above, continue Gentamicin 80mg inh BID (4) Rhabdomyolysis Code(s): M62.82 - RHABDOMYOLYSIS Status: Acute Comment: mild, persistent (5) Fall Code(s): W19.XXXA - UNSPECIFIED FALL, INITIAL ENCOUNTER Status: Acute Comment: PT for functional assessment and mobilization (6) Severe muscle deconditioning Code(s): R29.898 - OTH SYMPTOMS AND SIGNS INVOLVING THE MUSCULOSKELETAL SYSTEM Status: Chronic Comment: SNF/rehab options - Plan continue antibiotics, PT/OT, transition social worker, respiratory therapy, out of bed/ ambulate, DVT proph w/SCDs Continue aggressive pulm support -: Continue Duonebs q2h, Brovana, Pulmicort -: Continue Solumedrol -: Continue Cefepime and Levaquin -: Continue Tamiflu 75mg BID * CM for SNF options * AM lab: CBC * [facility] IV[facility]
[2017-10-06] MEDS: guaiFENesin ER 600 MG TAB PO SCH (20:04)
[2017-10-07] MEDS: Ketorolac Tromethamine 30 MG/ML VIAL IVP SCH ×4 (00:45→17:56)
[2017-10-07] MEDS: Oseltamivir 75 MG CAP PO SCH ×2 (00:45→10:52)
[2017-10-07] MEDS: ALPRAZolam 0.25 MG TAB PO PRN (02:21)
[2017-10-07 06:42] LABS: Band 4 % (5-11); Hemoglobin 9.8 g/dL (12.0-16.0); Hypochromia SLIGHT = 6-15 cells (100X) (0-5/hpf); Lymphocytes 3 % (21-51); MDiff Complete? YES; Mean Corpuscular Hemoglobin 26.2 pg (27.0-31.0); Mean Corpuscular Volume 87.4 fl (81.0-99.0); Mean Platelet Volume 6.5 fL (7.4-10.4); Metamyelocyte 1 % (0-0); Monocytes 3 % (0-10); Neutrophil 89 % (42-75); PLT Morphology Comment Appears Adequate; Platelet Count 281 thou/uL (130-400); RBC Distribution Width 12.5 % (11.5-14.5); Red Blood Cell (RBC) Count 3.72 mill/uL (4.20-5.40); White Blood Cell (WBC) Count 11.2 thou/uL (4.8-10.8)
[2017-10-07] MEDS: Budesonide 0.5 MG/2 ML NEB NEB SCH ×2 (07:00→19:42)
[2017-10-07] MEDS: Mometasone/Formoterol 120 PUFF INHALER INH SCH ×2 (07:12→20:12)
[2017-10-07] MEDS: Cefepime 2 GM, Syringe 2.5 ML in Sterile Water 10 ML SLOW IVP SCH ×2 (07:52→20:54)
[2017-10-07] MEDS: guaiFENesin ER 600 MG TAB PO SCH ×2 (07:52→20:54)
[2017-10-07] MEDS: Famotidine 20 MG TAB PO SCH ×2 (07:52→20:54)
[2017-10-07] MEDS: Gentamicin 80 MG/2 ML VIAL IRR SCH (07:53)
[2017-10-07] MEDS: Phenergan/Codeine 10-6.25mg/5ml UDCUP PO PRN ×3 (10:51→21:03)
[2017-10-07] MEDS ORDERED: Albuterol Sulfate 2.5 mg/3 ml Neb NEB PRN (11:28)
--- NOTE | 2017-10-07 11:35 | PRG ---
DATE OF SERVICE: 10/07/2017 SUBJECTIVE: The patient is no longer using the BiPAP. She is very depressed, but appears to have im proved from a pulmonary standpoint. OBJECTIVE: VITAL SIGNS: Temperature 97.8, pulse 90, respirations 20, O2 sat 99% on 3 liters and blood pressure 139/78. HEENT: Unremarkable. NECK: No JVD. LUNGS: A few inspiratory crackles in the bases. CARDIOVASCULAR: S1 and S2 regular. ABDOMEN: Soft. EXTREMITIES: No edema. LABORATORY DATA: White blood cell count 11.2, hematocrit 32.6 and platelet count 281. Sodium 136, p otassium 3.2, chloride 98, CO2 of 30, BUN 15, creatinine 0.7 and glucose of 149. CPK is 1333. ASSESSMENT: 1. Influenza B. 2. Chronic obstructive pulmonary disease. 3. Bronchitis. 4. Mild rhabdomyolysis. PLAN: She is no longer using the BiPAP. I believe she could be transferred to the floor. She is co ntinuing Tamiflu through Monday, needs to continue with physical therapy.
[2017-10-07] MEDS: traMADol HCl 50 MG TAB PO PRN ×2 (15:35→21:03)
--- NOTE | 2017-10-07 16:46 | PDOC.PN ---
- Subjective Encounter Start Date: 10/07/17 Encounter Start Time: 16:40 Subjective: f/u for acute/chronic hypoxic resp failure, Influenza B and chronic -: bronchiectasis. c/o migraine headache for days. - Objective MAR Reviewed: Yes Vital Signs & Weight: Vital Signs (12 hours) Temp Pulse Resp BP Pulse Ox 10/07/17 16:00 97.4 F L 103 H 18 131/79 92 L 10/07/17 15:30 96 28 H 10/07/17 11:21 89 27 H 99 10/07/17 11:03 98.2 F 95 22 H 168/98 H 100 10/07/17 08:00 97.8 F 90 20 99 10/07/17 07:39 97.8 F 90 20 139/78 100 10/07/17 07:01 99 10/07/17 06:55 91 28 H 99 Weight Admit Weight 123 lb 12.8 oz Weight 127 lb 7.999 oz I&O: 10/06/17 10/07/17 10/08/17 06:59 06:59 06:59 Intake Total 4650 3594 Output Total 2330 1725 Balance 2320 1869 Result Diagrams: 10/07/17 04:04 10/06/17 04:47 Additional Labs: Laboratory Tests 10/05/17 10/06/17 10/06/17 05:50 04:47 04:47 WBC 15.3 H Sodium 133 L Creatine Kinase 1333 H Radiology Reviewed by me: Yes (PCXR - no acute process) Phys Exam - Physical Examination Constitutional: NAD HEENT: PERRLA, oral pharynx no lesions Neck: no JVD, supple diminished in bases Cardiovascular: RRR Gastrointestinal: soft, non-tender, no distention, positive bowel sounds Musculoskeletal: no edema, pulses present Neurological: normal sensation, moves all 4 limbs Psychiatric: A&O x 3 Skin: normal turgor, cap refill <2 seconds Dx/Plan (1) Acute and chronic respiratory failure with hypoxia Code(s): J96.21 - ACUTE AND CHRONIC RESPIRATORY FAILURE WITH HYPOXIA Status: Acute Comment: Continue aggressive pulmonary support, BiPAP not tolerated by pt, change Duonebs q4h prn titrate O2 to response (2) Influenza B Code(s): J10.1 - FLU DUE TO OTH IDENT INFLUENZA VIRUS W OTH RESP MANIFEST Status: Acute Comment: Continue Tamiflu 75mg BID, resp isolation (3) Bronchiectasis Code(s): J47.9 - BRONCHIECTASIS, UNCOMPLICATED Status: Chronic Comment: 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, continue tx as outlined above, continue Gentamicin 80mg inh BID (4) Rhabdomyolysis Code(s): M62.82 - RHABDOMYOLYSIS Status: Acute Comment: mild, persistent (5) Fall Code(s): W19.XXXA - UNSPECIFIED FALL, INITIAL ENCOUNTER Status: Acute Comment: PT for functional assessment and mobilization (6) Severe muscle deconditioning Code(s): R29.898 - OTH SYMPTOMS AND SIGNS INVOLVING THE MUSCULOSKELETAL SYSTEM Status: Chronic Comment: SNF/rehab options - Plan plan discussed w/ family, continue antibiotics, PT/OT, health care social worker, respiratory therapy, out of bed/ambulate, DVT proph w/SCDs Stable overall -: Continue Duonebs, Pulmicort, Solumedrol -: Titrate O2 to clinical response -: Continue Cefepime -: Continue Tamiflu 75mg BID * Trial Sumatriptan 50mg daily/prn migraine headache
--- NOTE | 2017-10-07 17:49 | EKG ---
Test Reason : Blood Pressure : / mmHG Vent. Rate : 089 BPM Atrial Rate : 089 BPM P-R Int : 168 ms QRS Dur : 088 ms QT Int : 402 ms P-R-T Axes : 061 067 057 degrees QTc Int : 489 ms Normal sinus rhythm Possible Left atrial enlargement Borderline ECG Confirmed by ZOILA GARCIA D.O. ([id number]), editor [employer] SILVANO FORMAN ([id number]) on 10/07/2017 5:48:20 PM Referred By: BRIAN GARCIA Confirmed By:ZOILA GARCIA D.O.
[2017-10-07] MEDS: SUMAtriptan Succinate 50 MG TAB PO SCH (18:59)
[2017-10-08] MEDS: Oseltamivir 75 MG CAP PO SCH ×3 (00:03→19:28)
[2017-10-08] MEDS: Ketorolac Tromethamine 30 MG/ML VIAL IVP SCH ×4 (00:04→17:02)
[2017-10-08] MEDS: traMADol HCl 50 MG TAB PO PRN ×3 (03:37→16:30)
[2017-10-08] MEDS: Phenergan/Codeine 10-6.25mg/5ml UDCUP PO PRN ×3 (03:37→16:30)
[2017-10-08] MEDS: Budesonide 0.5 MG/2 ML NEB NEB SCH ×2 (05:32→22:31)
[2017-10-08] MEDS: Mometasone/Formoterol 120 PUFF INHALER INH SCH ×2 (05:35→22:32)
[2017-10-08] MEDS: guaiFENesin ER 600 MG TAB PO SCH ×2 (08:59→19:28)
[2017-10-08] MEDS: SUMAtriptan Succinate 50 MG TAB PO SCH (08:59)
[2017-10-08] MEDS: Cefepime 2 GM, Syringe 2.5 ML in Sterile Water 10 ML SLOW IVP SCH ×2 (09:00→21:42)
[2017-10-08] MEDS: Famotidine 20 MG TAB PO SCH ×2 (09:00→19:28)
[2017-10-08] MEDS: Aspirin/APAP/Caffeine Tab (Excedrin Migraine) PO PRN (11:31)
--- NOTE | 2017-10-08 13:12 | PDOC.PN ---
- Subjective Encounter Start Date: 10/08/17 Encounter Start Time: 13:00 Subjective: f/u acute/chronic hypoxic resp failure, Influenza B + and chronic -: bronchiectasis. Feeling better overall with less SOB. RICHARDSON improved. - Objective MAR Reviewed: Yes Vital Signs & Weight: Vital Signs (12 hours) Temp Pulse Resp BP BP Pulse Ox 10/08/17 11:30 97.7 F 89 16 170/91 H 99 10/08/17 09:26 98 18 99 10/08/17 08:00 97.5 F L 98 18 99 10/08/17 07:50 97.5 F L 98 16 148/81 H 99 10/08/17 05:35 93 20 97 10/08/17 05:32 93 20 97 10/08/17 04:52 97.3 F L 97 18 166/94 H 98 10/08/17 02:55 20 Weight Admit Weight 123 lb 12.8 oz Weight 127 lb 7.999 oz I&O: 10/07/17 10/08/17 10/09/17 06:59 06:59 06:59 Intake Total 3594 2370 Output Total 1725 Balance 1869 2370 Result Diagrams: 10/07/17 04:04 10/06/17 04:47 Phys Exam - Physical Examination Constitutional: NAD smiling, alert HEENT: PERRLA, oral pharynx no lesions Neck: no JVD, supple diminished in bases Cardiovascular: RRR Gastrointestinal: soft, non-tender, no distention, positive bowel sounds Musculoskeletal: no edema, pulses present Neurological: normal sensation, moves all 4 limbs Psychiatric: A&O x 3 Skin: normal turgor, cap refill <2 seconds Dx/Plan (1) Acute and chronic respiratory failure with hypoxia Code(s): J96.21 - ACUTE AND CHRONIC RESPIRATORY FAILURE WITH HYPOXIA Status: Acute Comment: Continue aggressive pulmonary support, BiPAP not tolerated by pt, change Duonebs q4h prn titrate O2 to response (2) Influenza B Code(s): J10.1 - FLU DUE TO OTH IDENT INFLUENZA VIRUS W OTH RESP MANIFEST Status: Acute Comment: Continue Tamiflu 75mg BID, resp isolation, complete course on 10/09/17 (3) Bronchiectasis Code(s): J47.9 - BRONCHIECTASIS, UNCOMPLICATED Status: Chronic Comment: 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, continue tx as outlined above, continue Gentamicin 80mg inh BID (4) Rhabdomyolysis Code(s): M62.82 - RHABDOMYOLYSIS Status: Acute Comment: mild, resolved (5) Fall Code(s): W19.XXXA - UNSPECIFIED FALL, INITIAL ENCOUNTER Status: Acute Comment: PT for functional assessment and mobilization (6) Severe muscle deconditioning Code(s): R29.898 - OTH SYMPTOMS AND SIGNS INVOLVING THE MUSCULOSKELETAL SYSTEM Status: Chronic Comment: SNF/rehab options - Plan plan discussed w/ family, continue antibiotics, PT/OT, social contact worker, respiratory therapy, out of bed/ambulate, DVT proph w/SCDs Stable overall -: Continue Levaquin 750mg po daily -: Continue Tamiflu until 10/09/17 -: OOB/ambulate -: SNF/Rehab options * Change Solumedrol 40mg IV q12h
[2017-10-08] MEDS ORDERED: Senokot S 8.6-50 MG TAB PO SCH (13:45)
--- NOTE | 2017-10-08 15:00 | PRG ---
DATE OF SERVICE: 10/08/2017 SUBJECTIVE: The patient states that she is finally beginning to feel better. OBJECTIVE: VITAL SIGNS: Temperature 97.7, pulse 89, respirations 18, O2 sat 98% on 2 liters, blood pressure 170 /91. HEENT: Unremarkable. NECK: No JVD. LUNGS: Clear. CARDIAC: S1 and S2 regular. ABDOMEN: Soft. EXTREMITIES: No edema. ASSESSMENT: 1. Influenza B. 2. Chronic obstructive pulmonary disease exacerbation. PLAN: Increase activity as tolerated. Continue breathing treatments, antibiotics. Her steroid dose was tapered today.
[2017-10-08] MEDS: Acetaminophen 500 MG TAB PO PRN (19:28)
[2017-10-08] MEDS: Senokot S 8.6-50 MG TAB PO SCH (19:28)
[2017-10-09] MEDS: Ketorolac Tromethamine 30 MG/ML VIAL IVP SCH ×3 (00:47→10:37)
[2017-10-09] MEDS: traMADol HCl 50 MG TAB PO PRN ×4 (02:55→23:17)
[2017-10-09] MEDS: Ondansetron HCl/PF 4 MG/2 ML Vial IVP PRN ×4 (02:55→21:00)
[2017-10-09] MEDS: Aspirin/APAP/Caffeine Tab (Excedrin Migraine) PO PRN ×2 (05:54→15:49)
[2017-10-09] MEDS: Budesonide 0.5 MG/2 ML NEB NEB SCH ×2 (07:36→22:37)
[2017-10-09] MEDS: Mometasone/Formoterol 120 PUFF INHALER INH SCH ×2 (07:39→22:37)
[2017-10-09] MEDS: Cefepime 2 GM, Syringe 2.5 ML in Sterile Water 10 ML SLOW IVP SCH (08:12)
[2017-10-09] MEDS: SUMAtriptan Succinate 50 MG TAB PO SCH (08:23)
[2017-10-09] MEDS: Senokot S 8.6-50 MG TAB PO SCH ×2 (08:23→21:05)
[2017-10-09] MEDS: guaiFENesin ER 600 MG TAB PO SCH ×2 (08:23→21:06)
[2017-10-09] MEDS: Famotidine 20 MG TAB PO SCH ×2 (08:23→21:06)
[2017-10-09] MEDS: Phenergan/Codeine 10-6.25mg/5ml UDCUP PO PRN ×3 (08:45→23:17)
--- NOTE | 2017-10-09 09:05 | PRG ---
DATE OF SERVICE: 10/09/2017 This morning she is better. She was nauseated last night. PHYSICAL EXAMINATION: VITAL SIGNS: Sats are 90% on room air, respiration 20, temperature 98, blood pressure 140/86. CHEST: Chest reveals decreased breath sounds, no wheezing. CARDIAC: Normal S1, S2. ABDOMEN: Soft, no masses. X-ray was normal. IMPRESSION: 1. Chronic obstructive pulmonary disease exacerbation. 2. Bronchitis. 3. Bronchiectasis. 4. Influenza B. PLAN: She was nauseated, it may be the medication. I am going to discontinue the steroids, predniso ne decreased dose of Levaquin. She can be discharged home anytime. Follow up with her primary care physician.
[2017-10-09] MEDS: predniSONE 20 MG TAB PO SCH ×2 (10:37→21:05)
[2017-10-09] MEDS: Nystatin 500,000 UNITS/5 ML UDCUP SSW SCH ×2 (15:49→21:06)
--- NOTE | 2017-10-09 16:57 | PDOC.PN ---
- Subjective Encounter Start Date: 10/09/17 Encounter Start Time: 16:30 Subjective: f/u for acute/chronic hypoxic resp failure, + Influenza B. Completed -: Tamiflu. Overall feels better and less SOB. Plan for transfer to [place] -: Swing bed in am. - Objective MAR Reviewed: Yes Vital Signs & Weight: Vital Signs (12 hours) Temp Pulse Resp BP Pulse Ox Pulse Ox Pulse Ox 10/09/17 16:53 98.8 F 111 H 20 137/84 100 10/09/17 15:06 89 18 88 L 10/09/17 13:11 97 99 10/09/17 11:19 97.3 F L 103 H 22 H 131/76 99 10/09/17 10:17 92 16 98 10/09/17 08:00 97.8 F 92 22 H 148/86 H 98 10/09/17 07:36 81 16 95 Weight Admit Weight 123 lb 12.8 oz Weight 127 lb 7.999 oz I&O: 10/08/17 10/09/17 10/10/17 06:59 06:59 06:59 Intake Total 2370 450 Balance 2370 450 Result Diagrams: 10/07/17 04:04 10/06/17 04:47 Phys Exam - Physical Examination Constitutional: NAD white plaques on tongue HEENT: PERRLA Neck: no JVD, supple diminished bilat, scattered coarse sounds Cardiovascular: RRR Gastrointestinal: soft, non-tender, no distention, positive bowel sounds Musculoskeletal: no edema, pulses present Neurological: normal sensation, moves all 4 limbs Skin: normal turgor, cap refill <2 seconds Dx/Plan (1) Acute and chronic respiratory failure with hypoxia Code(s): J96.21 - ACUTE AND CHRONIC RESPIRATORY FAILURE WITH HYPOXIA Status: Acute Comment: Continue aggressive pulmonary support, BiPAP not tolerated by pt, change Duonebs q4h prn titrate O2 to response (2) Influenza B Code(s): J10.1 - FLU DUE TO OTH IDENT INFLUENZA VIRUS W OTH RESP MANIFEST Status: Acute Comment: Tamiflu completed on 10/09/17 (3) Bronchiectasis Code(s): J47.9 - BRONCHIECTASIS, UNCOMPLICATED Status: Chronic Comment: 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, continue tx as outlined above, continue Gentamicin 80mg inh BID (4) Rhabdomyolysis Code(s): M62.82 - RHABDOMYOLYSIS Status: Acute Comment: mild, resolved (5) Fall Code(s): W19.XXXA - UNSPECIFIED FALL, INITIAL ENCOUNTER Status: Acute Comment: PT for functional assessment and mobilization (6) Severe muscle deconditioning Code(s): R29.898 - OTH SYMPTOMS AND SIGNS INVOLVING THE MUSCULOSKELETAL SYSTEM Status: Chronic Comment: [place] Swing Bed for PT/OT and supervised care - Plan plan discussed w/ family, continue antibiotics, PT/OT, social media strategist, respiratory therapy, out of bed/ambulate, DVT proph w/SCDs Stable overall -: Continue PT/OT with plans for swing bed after d/c due to severe -: weakness and deconditioning -: D/C Cefepime -: Continue Levaquin 500mg daily * Prednisone 20mg BID * Plan for d/c to [facility] 10/10/17
--- NOTE | 2017-10-09 17:43 | PRG ---
DATE OF SERVICE: 10/09/2017 SUBJECTIVE: Sitting up in bed. The family members in the room with her, she is awake, alert, orient ed, much improved, much less tachypnea. No chest pain. Having mid epigastric pain, which is quite i ntense. She rates it at 8 from 0 to 10. No vomiting. No genitourinary symptoms. OBJECTIVE: VITAL SIGNS: T-max 98.2, blood pressure 130/80, pulse 111, respiratory rate 20. LUNGS: Distant lung sounds. No more wheezing, few crackles here and there. S1, S2, regular rate. ABDOMEN: Moderately distended with tenderness in the epigastric area. No edema. LABORATORY DATA: White cell count down to 11.2, hemoglobin 9.8, platelets 281. Sodium 136, creatini ne 0.72. CK 1300. Albumin 3.0. ASSESSMENT AND DISCUSSION: COPD, bronchiectasis and now findings of infection decompensation much im proved except for the development of this epigastric pain, which is quite intense. We will check abd ominal ultrasound, amylase, lipase, liver function tests, if persists and there is no explanation may need. Gastroenterology consultation with EGD.
[2017-10-09 18:11] LABS: ALT (SGPT) 33 U/L (8-55); AST (SGOT) 25 U/L (5-34); Albumin 3.2 g/dL (3.4-4.8); Alkaline Phosphatase 62 U/L (40-150); Bilirubin, Direct 0.2 mg/dL (0.1-0.3); Bilirubin, Total 0.3 mg/dL (0.2-1.2); Lipase 13 U/L (8-78); Protein, Total 6.1 g/dL (6.0-8.3)
[2017-10-09] MEDS: Acetaminophen 500 MG TAB PO PRN (21:04)
[2017-10-10] MEDS: Cepastat Lozenges 1 LOZ PO PRN ×2 (05:00→09:08)
[2017-10-10] MEDS: Ondansetron HCl/PF 4 MG/2 ML Vial IVP PRN (05:49)
[2017-10-10] MEDS: Budesonide 0.5 MG/2 ML NEB NEB SCH ×2 (06:22→18:55)
[2017-10-10] MEDS: Mometasone/Formoterol 120 PUFF INHALER INH SCH ×2 (06:25→18:58)
--- NOTE | 2017-10-10 07:55 | ULT ---
RIGHT UPPER QUADRANT ULTRASOUND: Date: 10-10-17 Comparison: None. History: Epigastric pain with nausea, vomiting, and constipation. Technique: Multiplanar grayscale sonographic imaging of the right upper quadrant obtained. FINDINGS: Imaged pancreas is unremarkable. Distal body and tail are obscured by bowel gas. No focal liver lesion or intrahepatic biliary dilatation is seen. The common bile duct measures 3 mm, within normal limits. There is a single mobile subcentimeter gallstone noted. No gallbladder wall thickening or pericholecy stic fluid. The sonographic Flynn's sign is not reported by the rubber tubing backer. Clinical correlation is thus required. Right kidney measures 9.5 cm in craniocaudal dimension and demonstrates no stone, hydronephrosis or m ass. IMPRESSION: Subcentimeter mobile stone noted within the gallbladder lumen. No gallbladder wall thickening or yvrose cholecystic fluid. POS: JULIO CESAR
[2017-10-10] MEDS: Famotidine 20 MG TAB PO SCH (09:01)
[2017-10-10] MEDS: Senokot S 8.6-50 MG TAB PO SCH ×2 (09:01→20:28)
[2017-10-10] MEDS: predniSONE 20 MG TAB PO SCH ×2 (09:01→20:29)
[2017-10-10] MEDS: SUMAtriptan Succinate 50 MG TAB PO SCH (09:01)
[2017-10-10] MEDS: guaiFENesin ER 600 MG TAB PO SCH ×2 (09:02→20:27)
[2017-10-10] MEDS: Nystatin 500,000 UNITS/5 ML UDCUP SSW SCH ×3 (09:02→20:27)
[2017-10-10] MEDS: traMADol HCl 50 MG TAB PO PRN ×2 (09:12→17:15)
--- NOTE | 2017-10-10 10:03 | PRG ---
DATE OF SERVICE: 10/10/2017 She denies any difficulty breathing, but is complaining of abdominal pain and nausea. PHYSICAL EXAMINATION: VITAL SIGNS: Blood pressure is 176/76, sats 91%, temperature 97, respirations 20, pulse 100. CHEST: Chest revealed decreased breath sounds, no wheezing. CARDIAC: Normal S1, S2. ABDOMEN: Soft, no masses. IMPRESSION: 1. Abdominal pain status post ultrasound of the abdomen which shows a single cholelithiasis. 2. Chronic obstructive pulmonary disease exacerbation. 3. Abdominal pain. DISPOSITION: As per primary care physician. She follows with a cotton picking machine operator at [facility].
[2017-10-10] MEDS ORDERED: cloNIDine 0.1 MG TAB PO PRN (10:35)
--- NOTE | 2017-10-10 10:35 | PDOC.PN ---
- Subjective Encounter Start Date: 10/10/17 Encounter Start Time: 10:33 Patient seen and examined. Abd pain - periumbilical - intermittent - moderate in intensity. No overnight events - Objective MAR Reviewed: Yes Vital Signs & Weight: Vital Signs (12 hours) Temp Pulse Resp BP Pulse Ox 10/10/17 08:00 97.5 F L 110 H 22 H 117/76 91 L 10/10/17 06:22 95 20 90 L 10/10/17 04:46 100 10/10/17 02:23 88 18 100 Weight Admit Weight 123 lb 12.8 oz Weight 127 lb 7.999 oz I&O: 10/09/17 10/10/17 10/11/17 06:59 06:59 06:59 Intake Total 450 1650 Balance 450 1650 Result Diagrams: 10/10/17 10:30 10/10/17 10:30 Radiology Reviewed by me: Yes (KUB - Constipation) Phys Exam - Physical Examination Constitutional: NAD Respiratory: no wheezing, no rales Scat rhonchi, symmetrical Cardiovascular: RRR, no rub no heaves/pulsations Gastrointestinal: soft, no distention, positive bowel sounds mild periumbilical tend/ no rebound or guarding Musculoskeletal: no edema Neurological: moves all 4 limbs Psychiatric: A&O x 3 Dx/Plan - Plan DVT proph w/SCDs IMPRESSION: 1. Abd pain - persistent - Probably due to constipation - last BM 3 days ago 2. Acute on Chronic Resp failure with hypoxia due to COPD exacerbation/ Influenza B/Bronchiectasis exacerbation 3. Metabolic alkalosis - prob due to either contraction alkalosis vs CO2 retention 4. Elevated troponins due to demand ischemia 5. Rhabdomyolysis /Physical deconditioning/Hyponatremia/Chronic pain syndrome/ Chronic Anemia/?Moderate Protein Calorie malnutrion / CKD 2 PLAN: * GI consult per family request * Treat constipation * I discussed with Dr Molina - Add Diamox * LFTs normal yesterday * GNB USG reviewed * Add PPI - dc Pepcid * Add Miralax * Cont current meds as below * Await placement to SNF Review of Systems - Review of Systems Respiratory: SOB with Excertion. negative: Cough, Dry, Shortness of Breath, Hemoptysis, Pleuritic Pain, Sputum, Wheezing Cardiovascular: negative: chest pain, palpitations, orthopnea, paroxysmal nocturnal dyspnea, edema, light headedness - Medications/Allergies Allergies/Adverse Reactions: Allergies Allergy/AdvReac Type Severity Reaction Status Date / Time codeine Allergy Intermediate Nausea Verified 10/07/17 09:45 Medications: Current Medications Acetaminophen (Tylenol) 1,000 mg PO Q6H PRN PRN Reason: Headache/Fever or Mild Pain Last Admin: 10/09/17 21:04 Dose: 1,000 mg Acetaminophen/Aspirin/Caffeine (Excedrin Migraine) 2 tab PO Q6H PRN PRN Reason: Headache Last Admin: 10/09/17 15:49 Dose: 2 tab Albuterol Sulfate (Ventolin) 2.5 mg NEB Q2H PRN PRN Reason: Dyspnea/Wheezing/SOB Albuterol/Ipratropium (Duoneb) 3 ml NEB [id number] [facility] Last Admin: 10/10/17 06:24 Dose: 3 ml Alprazolam (Xanax) 0.25 mg PO TIDPRN PRN PRN Reason: Anxiety Last Admin: 10/07/17 02:21 Dose: 0.25 mg Benzonatate (Tessalon) 200 mg PO Q6H PRN PRN Reason: Cough Last Admin: 10/06/17 21:01 Dose: 200 mg Budesonide (Pulmicort Neb Solution) 0.5 mg NEB BID-RT [facility] Last Admin: 10/10/17 06:22 Dose: 0.5 mg Clonidine (Catapres) 0.1 mg PO Q4H PRN PRN Reason: Systolic BP > 180 Famotidine (Pepcid) 20 mg PO BID [facility] Last Admin: 10/10/17 09:01 Dose: 20 mg Guaifenesin (Mucinex) 600 mg PO Q12HR [facility] Last Admin: 10/10/17 09:02 Dose: 600 mg Hydralazine HCl (Apresoline) 10 mg SLOW IVP Q4H PRN PRN Reason: Systolic BP > 180 Levofloxacin (Levaquin) 500 mg PO 0600 [facility] Stop: 10/12/17 06:01 Last Admin: 10/10/17 06:03 Dose: 500 mg Mometasone Furoate/Formoterol Fumar (Dulera 200 Mcg/5 Mcg Inhaler) 2 puff INH BID-RT [facility] Last Admin: 10/10/17 06:25 Dose: 2 puff Nystatin (Mycostatin) 500,000 units SSW TID [facility] Last Admin: 10/10/17 09:02 Dose: 500,000 units Ondansetron HCl (Zofran Odt) 4 mg PO Q6H PRN PRN Reason: Nausea/Vomiting Ondansetron HCl (Zofran) 4 mg IVP Q6H PRN PRN Reason: Nausea/Vomiting Last Admin: 10/10/17 05:49 Dose: 4 mg Pantoprazole Sodium (Protonix) 40 mg PO DAILY [facility] Pantoprazole Sodium (Protonix) 40 mg PO ONE ONE Stop: 10/10/17 10:31 Polyethylene Glycol (Miralax) 17 gm PO DAILY [facility] Polyethylene Glycol (Miralax) 17 gm PO ONE [facility] Prednisone (Prednisone) 20 mg PO BID [facility] Last Admin: 10/10/17 09:01 Dose: 20 mg Promethazine HCl/Codeine (Phenergan/Codeine Syrup) 5 ml PO Q4H PRN PRN Reason: Cough Last Admin: 10/09/17 23:17 Dose: 5 ml Senna/Docusate Sodium (Senokot S) 1 tab PO BID [facility] Last Admin: 10/10/17 09:01 Dose: 1 tab Sodium Chloride (Flush - Normal Saline) 10 ml IVF Q12HR [facility] Last Admin: 10/10/17 09:03 Dose: 10 ml Sodium Chloride (Flush - Normal Saline) 10 ml IVF PRN PRN PRN Reason: Saline Flush Sodium Chloride ([place] Nasal [place] 0.65%) 0 ml EA NARE TID PRN PRN Reason: Nasal Congestion Sumatriptan Succinate (Imitrex) 50 mg PO DAILY [facility] Last Admin: 10/10/17 09:01 Dose: 50 mg Throat Lozenges (Cepastat Lozenges) 1 caio PO Q2H PRN PRN Reason: Sore Throat Last Admin: 10/10/17 09:08 Dose: 1 caio Tramadol HCl (Ultram) 50 mg PO Q6H PRN PRN Reason: Pain Last Admin: 10/10/17 09:12 Dose: 50 mg
[2017-10-10 10:51] LABS: #Lymphocytes 0.9 thou/uL (1.20-3.40); #Monocytes 1.3 thou/uL (0.11-0.59); %Basophils 0.3 % (0.0-1.0); %Eosinophils 0.1 % (0.0-10.0); %Lymphocytes 5.7 % (21.0-51.0); %Monocytes 7.8 % (0.0-10.0); %Neutrophils 86.1 % (42.0-75.0); Hemoglobin 10.2 g/dL (12.0-16.0); Mean Corpuscular HGB CONC 30.6 g/dL (32.0-36.0); Mean Corpuscular Hemoglobin 26.5 pg (27.0-31.0); Mean Corpuscular Volume 86.6 fl (81.0-99.0); Mean Platelet Volume 6.6 fL (7.4-10.4); Platelet Count 294 thou/uL (130-400); RBC Distribution Width 12.3 % (11.5-14.5); Red Blood Cell (RBC) Count 3.83 mill/uL (4.20-5.40); White Blood Cell (WBC) Count 16.3 thou/uL (4.8-10.8)
[2017-10-10] MEDS: Phenergan/Codeine 10-6.25mg/5ml UDCUP PO PRN (11:07)
[2017-10-10 11:28] LABS: BUN (Urea Nitrogen) 26 mg/dL (9.8-20.1); CK (CPK) 100 U/L (29-168); Calc. Creatinine Clearance 45 mL/min (70-130); Calcium 9.1 mg/dL (7.8-10.44); Estimated GFR-MDRD 59; Glucose 97 mg/dL (83-110); Magnesium 1.9 mg/dL (1.6-2.6)
[2017-10-10 11:38] LABS: Anion Gap 10 mmol/L (10-20); Carbon Dioxide 39 mmol/L (23-31); Chloride 86 mmol/L (98-107); Potassium 3.2 mmol/L (3.5-5.1); Sodium 132 mmol/L (136-145)
[2017-10-10] MEDS ORDERED: Polyethylene Glycol 3350 17 GM Packet PO SCH (12:00)
[2017-10-10] MEDS ORDERED: Potassium Chloride 40 MEQ in Premix Bag 1 BAG IVPB SCH (12:30)
[2017-10-10] MEDS ORDERED: AcetaZOLAMIDE 250 MG TAB PO SCH (12:30)
[2017-10-10] MEDS: Sodium Chloride 0.65% Nasal 44 ML BOT EA NARE PRN ×2 (13:24→17:16)
--- NOTE | 2017-10-10 13:33 | RAD ---
ABDOMEN 2 VIEWS: HISTORY: Abdominal pain. FINDINGS: No free air or differential fluid levels are seen. The bowel gas pattern is unremarkable. There is a large amount of fecal material in the colon. There is scoliosis of the spine. IMPRESSION: Constipation. POS: KAMRAN
[2017-10-10] MEDS: Fleet Enema 133 ML BOT PR PRN (15:59)
[2017-10-10] MEDS: Enoxaparin Sodium 30 MG/0.3 ML SYRINGE SC SCH (20:26)
[2017-10-10] MEDS: ALPRAZolam 0.25 MG TAB PO PRN (20:28)
[2017-10-10] MEDS: Polyethylene Glycol 3350 17 GM Packet PO SCH (20:41)
--- NOTE | 2017-10-10 20:47 | CON ---
DATE OF CONSULTATION: 10/10/2017 REQUESTING PHYSICIAN: Dr. Gomez. REASON FOR CONSULTATION: Abdominal pain. HISTORY OF PRESENT ILLNESS: Aura Glass is an 82-year-old woman who was admitted to the hospital almost a week ago on 10/04/2017 with influenza on a background of severe COPD. She developed rhabdom yolysis upon presentation as well. She has been treated with antibiotics, Tamiflu, steroids, and IV fluids. From a respiratory standpoint, over the past several days, she has significantly improved es sentially back to her baseline. She does take home oxygen, however. Also, over the past 2-3 days, s he has developed new abdominal pain. She denies any chronic abdominal pain. She says normally her b owel movements are regular, but she has been constipated here. She believes her last bowel movement was over 3 days ago. She describes her pain as in the epigastric and periumbilical area. She does n ot particularly related to oral intake. She has had labs showing normal LFTs and lipase today and an ultrasound, there is a single stone in her gallbladder, but this was otherwise unremarkable. An abd ominal x-ray showed a large amount of stool in the colon. I actually met the patient over 2 years ago in 06/2015 in clinic, at that time, she had had somewhat acute epigastric pain associated with nausea and vomiting. At that time, she was taking a lot NSAIDs . She declined EGD at that time and her symptoms improved. She also reported she had a normal colon oscopy at some point years ago. The patient has just now been started on MiraLax twice a day and just received an enema. She is curr ently feeling okay. REVIEW OF SYSTEMS: Full review of systems including constitutional, head, eyes, ears, nose, throat, GI, , cardiovascular, respiratory, musculoskeletal, and neurologic systems is negative except as no mele in the HPI. PAST MEDICAL HISTORY: Severe COPD, on home oxygen; chronic bronchiectasis; colonization with Pseudom onas aeruginosa; GERD, migraine headaches; former tobacco abuse, quit in 2008; chronic back pain; rec ent falls; appendectomy; and hysterectomy. ALLERGIES: PENICILLIN G and CODEINE. OUTPATIENT MEDICATIONS: Brovana nebulizer, budesonide nebulizer, gentamicin nebulizer, Combivent, tr amadol. INPATIENT MEDICATIONS: Tylenol p.r.n., Excedrin Migraine, DuoNeb, Xanax, benzonatate, budesonide neb ulizer, Mucinex, levofloxacin 500 mg daily, Dulera inhaler, nystatin swish and swallow, Zofran p.r.n. , prednisone 20 mg b.i.d., Phenergan p.r.n., Fleet enema and Dulcolax started today, MiraLax 17 grams b.i.d. started today, tramadol, sumatriptan. FAMILY HISTORY: Noncontributory. SOCIAL HISTORY: She quit smoking in 2008. No alcohol or drug abuse. PHYSICAL EXAMINATION: VITAL SIGNS: Temperature 97.8, pulse 88, blood pressure 153/86, 96% oxygen saturation on 2 liters na steph cannula. GENERAL: Frail, thin, 82-year-old woman, sitting up in bed comfortably, in no distress. SKIN: No jaundice, no rashes were palpable. EYES: No scleral icterus. Extraocular movements are intact. ENT: Mucous membranes are moist. No oral lesions. LYMPH: No submandibular or supraclavicular lymphadenopathy. THYROID: Nontender to palpation. HEART: Regular rate and rhythm. LUNGS: Clear to auscultation bilaterally. ABDOMEN: Bowel sounds present, soft, nontender to palpation throughout. EXTREMITIES: No peripheral edema. VESSELS: Radial pulses 2+ bilaterally. NEUROLOGICAL: Cranial nerves II through XII intact bilaterally. No focal deficits. LABORATORY STUDIES: WBC 16.3, hemoglobin 10.2, MCV 86.6, platelets 294. Sodium 132, potassium 3.2, BUN 26, creatinine 0.91, glucose 97, total bilirubin 0.3, alkaline phosphatase 62, AST 25, ALT 33, al bumin 3.2, lipase only 13. CK was over 1500 on admission, now down to 100. IMAGING STUDIES: Abdominal ultrasound shows normal appearing liver and common bile duct. There is a single gallstone and otherwise normal gallbladder with no gallbladder wall thickening or pericholecy stic fluid. Abdominal x-ray shows a large amount of stool in the colon. ASSESSMENT AND PLAN: 1. Epigastric/periumbilical abdominal pain. 2. Acute constipation. 3. Chronic obstructive pulmonary disease with exacerbation. 4. Influenza B. I discussed with the patient possible etiologies for her somewhat acute abdominal pain over the past few days. This is likely related to acute constipation. This is demonstrated on the abdominal x-ray . I doubt any biliary or pancreatic etiology given the normal LFTs and essentially unremarkable ultr asound. Another possibility would be gastritis or the development of the peptic ulcer disease. I ag ree with having started the daily PPI and the increase in bowel regimen. I presented the patient wit h the option to be somewhat aggressive diagnostically. If we were going to pursue endoscopy, I would actually give her a bowel preparation, perform both EGD and colonoscopy as it is unclear exactly whe n her last colonoscopy was. However, the patient declines any endoscopy and would prefer to avoid an y procedures if possible. Given her overall frailty and are just now recovering from influenza, I th ink that is a fine choice. We will not plan on any endoscopy at this time. I agree with the PPI and the increased bowel regimen. We will see how she does with this. Thank you for the consultation. Please call back with questions or concerns.
[2017-10-11] MEDS: traMADol HCl 50 MG TAB PO PRN ×4 (02:15→21:52)
[2017-10-11] MEDS: Aspirin/APAP/Caffeine Tab (Excedrin Migraine) PO PRN (02:17)
[2017-10-11] MEDS: ALPRAZolam 0.25 MG TAB PO PRN ×2 (05:40→20:49)
[2017-10-11] MEDS: Budesonide 0.5 MG/2 ML NEB NEB SCH (05:57)
[2017-10-11] MEDS: Mometasone/Formoterol 120 PUFF INHALER INH SCH ×2 (06:00→21:16)
[2017-10-11 06:05] LABS: Albumin 3.2 g/dL (3.4-4.8); Anion Gap 12 mmol/L (10-20); BUN (Urea Nitrogen) 23 mg/dL (9.8-20.1); BUN/Creatinine Ratio 27.71; Calc. Creatinine Clearance 49 mL/min (70-130); Carbon Dioxide 30 mmol/L (23-31); Chloride 91 mmol/L (98-107); Estimated GFR-MDRD 66; Glucose 129 mg/dL (83-110); Phosphorus 3.9 mg/dL (2.3-4.7); Potassium 4.4 mmol/L (3.5-5.1); Sodium 129 mmol/L (136-145)
[2017-10-11] MEDS: guaiFENesin ER 600 MG TAB PO SCH ×2 (08:37→20:49)
[2017-10-11] MEDS: Senokot S 8.6-50 MG TAB PO SCH ×2 (08:37→20:49)
[2017-10-11] MEDS: predniSONE 20 MG TAB PO SCH ×2 (08:37→20:49)
[2017-10-11] MEDS: Bisacodyl 10 MG SUPP PR SCH (08:39)
[2017-10-11] MEDS: Polyethylene Glycol 3350 17 GM Packet PO SCH ×2 (08:39→20:48)
[2017-10-11] MEDS: Sodium Chloride 0.65% Nasal 44 ML BOT EA NARE PRN ×2 (08:39→15:33)
[2017-10-11] MEDS: Phenergan/Codeine 10-6.25mg/5ml UDCUP PO PRN (08:39)
[2017-10-11] MEDS: SUMAtriptan Succinate 50 MG TAB PO SCH (08:39)
[2017-10-11] MEDS: Nystatin 500,000 UNITS/5 ML UDCUP SSW SCH ×3 (08:40→20:49)
[2017-10-11] MEDS ORDERED: AcetaZOLAMIDE 250 MG TAB PO SCH (09:00)
[2017-10-11] MEDS ORDERED: Polyethylene Glycol 3350 17 GM Packet PO SCH (09:00)
--- NOTE | 2017-10-11 10:12 | PRG ---
DATE OF SERVICE: 10/11/2017 This morning she is complaining sores in her mouth. PHYSICAL EXAMINATION: VITAL SIGNS: Temperature is 97, O2 saturation 97%, respirations 22, blood pressure 117/76. CHEST: Chest reveals decreased breath sounds with minimal rhonchi. CARDIAC: Normal S1, S2, no gallops. HEENT: Tongue shows multiple ulcerations, probably thrush. LABORATORY: Sodium 129. White count 16, H&H 10 and 32. IMPRESSION: 1. End-stage chronic obstructive pulmonary disease. 2. Abdominal pain. 3. Thrush. Bicarbonate has dropped from 39 to 30, probably much improved. Diflucan for a week has been prescribed. I am going to discontinue the Symbicort and budesonide. Once cleared from GI she can be discharged home.
[2017-10-11] MEDS ORDERED: Magnesium Citrate 300 ML BOT PO SCH (15:00)
--- NOTE | 2017-10-11 16:47 | PDOC.PN ---
- Subjective Encounter Start Date: 10/11/17 Encounter Start Time: 15:00 Patient seen and examined. Constipated. small BM after fleet enema yesterday. Same abd discomfort. No overnight events - Objective MAR Reviewed: Yes Vital Signs & Weight: Vital Signs (12 hours) Temp Pulse Resp BP Pulse Ox Pulse Ox Pulse Ox 10/11/17 11:29 88 14 100 10/11/17 10:33 100 100 10/11/17 08:00 97.5 F L 99 22 H 117/76 97 10/11/17 06:00 86 14 98 10/11/17 05:57 86 14 98 10/11/17 04:42 85 18 94 L Weight Admit Weight 123 lb 12.8 oz Weight 127 lb 7.999 oz I&O: 10/10/17 10/11/17 10/12/17 06:59 06:59 06:59 Intake Total 1650 580 Output Total 1999 Balance 1650 -1420 Result Diagrams: 10/10/17 10:30 10/11/17 05:37 Phys Exam - Physical Examination Constitutional: NAD Respiratory: no wheezing, no rhonchi Cardiovascular: RRR, no rub Gastrointestinal: soft, positive bowel sounds mild tend in lower quad, no rebound/guarding Musculoskeletal: no edema Neurological: moves all 4 limbs Dx/Plan - Plan DVT proph w/lovenox, DVT proph w/SCDs IMPRESSION: 1. Abd pain - persistent - Probably due to constipation 2. Acute on Chronic Resp failure with hypoxia due to COPD exacerbation/ Influenza B/Bronchiectasis exacerbation 3. Metabolic alkalosis - prob due to either contraction alkalosis vs CO2 retention 4. Elevated troponins due to demand ischemia 5. Rhabdomyolysis /Physical deconditioning/Hyponatremia/Chronic pain syndrome/ Chronic Anemia/?Moderate Protein Calorie malnutrion / CKD 2 / Oral thrush/ Cholelithiasis PLAN: * GI following * Repeat Enema x 1 * Add Mag Citrate * On Fluconazole per Pulm * Leucocytosis prob due to steroids. * Cont Diamox for 1 more day * Cont PPI * Cont current meds as below * Await placement to SNF Review of Systems - Review of Systems Cardiovascular: negative: chest pain, palpitations, orthopnea, paroxysmal nocturnal dyspnea, edema, light headedness Gastrointestinal: Abdominal Pain, Constipation. negative: Nausea, Vomiting, Diarrhea, Melena, Hematochezia - Medications/Allergies Allergies/Adverse Reactions: Allergies Allergy/AdvReac Type Severity Reaction Status Date / Time codeine AdvReac Intermediate Nausea Verified 10/10/17 20:25 Medications: Current Medications Acetaminophen (Tylenol) 1,000 mg PO Q6H PRN PRN Reason: Headache/Fever or Mild Pain Last Admin: 10/09/17 21:04 Dose: 1,000 mg Acetaminophen/Aspirin/Caffeine (Excedrin Migraine) 2 tab PO Q6H PRN PRN Reason: Headache Last Admin: 10/11/17 02:17 Dose: 2 tab Acetazolamide (Diamox) 250 mg PO DAILY [facility] Last Admin: 10/11/17 08:38 Dose: 250 mg Albuterol Sulfate (Ventolin) 2.5 mg NEB Q2H PRN PRN Reason: Dyspnea/Wheezing/SOB Albuterol/Ipratropium (Duoneb) 3 ml NEB [id number] [facility] Last Admin: 10/11/17 11:29 Dose: 3 ml Alprazolam (Xanax) 0.25 mg PO TIDPRN PRN PRN Reason: Anxiety Last Admin: 10/11/17 05:40 Dose: 0.25 mg Benzonatate (Tessalon) 200 mg PO Q6H PRN PRN Reason: Cough Last Admin: 10/06/17 21:01 Dose: 200 mg Bisacodyl (Dulcolax) 10 mg VT DAILY [facility] Last Admin: 10/11/17 08:39 Dose: 10 mg Clonidine (Catapres) 0.1 mg PO Q4H PRN PRN Reason: Systolic BP > 180 Clonidine (Catapres) 0.1 mg PO Q4H PRN PRN Reason: Systolic BP > 180 Enoxaparin Sodium (Lovenox) 30 mg SC 2100 [facility] Last Admin: 10/10/17 20:26 Dose: 30 mg Fluconazole (Diflucan) 100 mg PO DAILY [facility] Guaifenesin (Mucinex) 600 mg PO Q12HR [facility] Last Admin: 10/11/17 08:37 Dose: 600 mg Hydralazine HCl (Apresoline) 10 mg SLOW IVP Q4H PRN PRN Reason: Systolic BP > 180 Levofloxacin (Levaquin) 500 mg PO 0600 [facility] Stop: 10/12/17 06:01 Last Admin: 10/11/17 05:40 Dose: 500 mg Magnesium Citrate (Citrate Of Magnesia 300 Ml Bot) 300 ml PO NOW [facility] Stop: 10/11/17 17:00 Last Admin: 10/11/17 15:33 Dose: 300 ml Methylcellulose (Citrucel) 500 mg PO BID [facility] Mometasone Furoate/Formoterol Fumar (Dulera 200 Mcg/5 Mcg Inhaler) 2 puff INH BID-RT [facility] Last Admin: 10/11/17 06:00 Dose: 2 puff Nystatin (Mycostatin) 500,000 units SSW TID [facility] Last Admin: 10/11/17 15:33 Dose: 500,000 units Ondansetron HCl (Zofran Odt) 4 mg PO Q6H PRN PRN Reason: Nausea/Vomiting Ondansetron HCl (Zofran) 4 mg IVP Q6H PRN PRN Reason: Nausea/Vomiting Last Admin: 10/10/17 05:49 Dose: 4 mg Pantoprazole Sodium (Protonix) 40 mg PO DAILY [facility] Last Admin: 10/11/17 08:37 Dose: 40 mg Polyethylene Glycol (Miralax) 17 gm PO BID [facility] Last Admin: 10/11/17 08:39 Dose: 17 gm Prednisone (Prednisone) 20 mg PO BID [facility] Last Admin: 10/11/17 08:37 Dose: 20 mg Promethazine HCl/Codeine (Phenergan/Codeine Syrup) 5 ml PO Q4H PRN PRN Reason: Cough Last Admin: 10/11/17 08:39 Dose: 5 ml Senna/Docusate Sodium (Senokot S) 2 tab PO BID [facility] Last Admin: 10/11/17 08:37 Dose: 2 tab Sodium Biphosphate/Sodium Phosphate (Fleet Enema) 133 ml VT Q24H PRN PRN Reason: Constipation Last Admin: 10/10/17 15:59 Dose: 133 ml Sodium Chloride (Flush - Normal Saline) 10 ml IVF Q12HR [facility] Last Admin: 10/11/17 08:40 Dose: Not Given Sodium Chloride (Flush - Normal Saline) 10 ml IVF PRN PRN PRN Reason: Saline Flush Sodium Chloride ([place] Nasal [place] 0.65%) 0 ml EA NARE TID PRN PRN Reason: Nasal Congestion Last Admin: 10/11/17 15:33 Dose: 1 spr Throat Lozenges (Cepastat Lozenges) 1 caio PO Q2H PRN PRN Reason: Sore Throat Last Admin: 10/10/17 09:08 Dose: 1 caio Tramadol HCl (Ultram) 50 mg PO Q6H PRN PRN Reason: Pain Last Admin: 10/11/17 15:40 Dose: 50 mg
[2017-10-11] MEDS: Fleet Enema 133 ML BOT PR PRN (18:44)
--- NOTE | 2017-10-11 20:21 | PRG ---
DATE OF SERVICE: 10/11/2017 SUBJECTIVE: Mrs. Glass did not really have good results from enema received yesterday or today. She continues to feel constipated and is straining to try to have a bowel movement. She reports ongo ing nausea, abdominal discomfort is no worse, but persistent. She again declines any offer of endosc opic investigation into her symptoms. PHYSICAL EXAMINATION: VITAL SIGNS: Temperature 97.5, pulse 88, blood pressure 117/76, 100% oxygen saturation on 2 liters n angelique cannula. GENERAL: Frail, in [id number] distress, sitting on the commode. HEART: Regular rate and rhythm. LUNGS: Clear to auscultation bilaterally. ABDOMEN: Bowel sounds present, soft, some generalized tenderness to palpation, but no guarding, rebo und tenderness. EXTREMITIES: No peripheral edema. LABORATORY STUDIES: Sodium 129, potassium 4.4, BUN 23, creatinine 0.83. ASSESSMENT AND PLAN: 1. Abdominal pain. 2. Constipation, acute. 3. Nausea. My impression remains that her symptoms are likely attributable to her acute constipation. I again o ffered EGD and colonoscopy for more aggressive investigation, but the patient again declines. As she has not had great results with measure so far, I will go ahead and order for a gallon of GoLYTELY to be given, slowly as tolerated, not as a bowel preparation, but in order to try to get her cleaned ou t and feeling better. She can drink this slowly she needs to as tolerated.
[2017-10-11] MEDS: Enoxaparin Sodium 30 MG/0.3 ML SYRINGE SC SCH (20:53)
[2017-10-11] MEDS: Citrucel 500 MG TAB PO SCH (21:54)
[2017-10-12 05:11] LABS: Mean Corpuscular HGB CONC 31.6 g/dL (32.0-36.0); Mean Corpuscular Hemoglobin 27.3 pg (27.0-31.0); Mean Corpuscular Volume 86.5 fl (81.0-99.0); Mean Platelet Volume 6.7 fL (7.4-10.4); Platelet Count 493 thou/uL (130-400); RBC Distribution Width 12.8 % (11.5-14.5); Red Blood Cell (RBC) Count 4.37 mill/uL (4.20-5.40); White Blood Cell (WBC) Count 47.5 thou/uL (4.8-10.8)
[2017-10-12 05:30] LABS: Band 2 % (5-11); Lymphocytes 4 % (21-51); MDiff Complete? YES; Monocytes 2 % (0-10); Neutrophil 92 % (42-75); PLT Morphology Comment Appears Increased
[2017-10-12 05:38] LABS: Anion Gap 14 mmol/L (10-20); BUN (Urea Nitrogen) 37 mg/dL (9.8-20.1); Calc. Creatinine Clearance 36 mL/min (70-130); Carbon Dioxide 28 mmol/L (23-31); Chloride 92 mmol/L (98-107); Estimated GFR-MDRD 46; Potassium 4.6 mmol/L (3.5-5.1); Sodium 129 mmol/L (136-145)
[2017-10-12 05:39] LABS: ALT (SGPT) 26 U/L (8-55); AST (SGOT) 20 U/L (5-34); Albumin 3.2 g/dL (3.4-4.8); Alkaline Phosphatase 198 U/L (40-150); Bilirubin, Total 0.8 mg/dL (0.2-1.2); Calcium 9.4 mg/dL (7.8-10.44); Globulin 2.7 g/dL (2.4-3.5); Glucose 178 mg/dL (83-110); Magnesium 2.8 mg/dL (1.6-2.6); Phosphorus 5.6 mg/dL (2.3-4.7); Protein, Total 5.9 g/dL (6.0-8.3)
[2017-10-12 05:47] LABS: Mean Corpuscular HGB CONC 30.8 g/dL (32.0-36.0); Mean Corpuscular Hemoglobin 26.5 pg (27.0-31.0); Mean Corpuscular Volume 86.1 fl (81.0-99.0); Mean Platelet Volume 6.8 fL (7.4-10.4); Platelet Count 471 thou/uL (130-400); RBC Distribution Width 12.8 % (11.5-14.5); Red Blood Cell (RBC) Count 4.53 mill/uL (4.20-5.40); White Blood Cell (WBC) Count 40.4 thou/uL (4.8-10.8)
[2017-10-12 06:02] LABS: Band 3 % (5-11); Lymphocytes 4 % (21-51); MDiff Complete? YES; Metamyelocyte 1 % (0-0); Monocytes 3 % (0-10); Neutrophil 89 % (42-75); PLT Morphology Comment Appears Increased
[2017-10-12] MEDS ORDERED: Vancomycin HCl 25 MG/ML Oral PO SCH (06:30)
[2017-10-12] MEDS ORDERED: metroNIDAZOLE 500 MG in Premix Bag 1 BAG IVPB SCH ×2 (06:30→22:00)
[2017-10-12] MEDS: Mometasone/Formoterol 120 PUFF INHALER INH SCH ×2 (07:45→18:52)
[2017-10-12] MEDS: Polyethylene Glycol 3350 17 GM Packet PO SCH (08:25)
[2017-10-12] MEDS: guaiFENesin ER 600 MG TAB PO SCH ×2 (08:25→21:12)
[2017-10-12] MEDS: Fluconazole 100 MG TAB PO SCH (08:25)
[2017-10-12] MEDS: Nystatin 500,000 UNITS/5 ML UDCUP SSW SCH ×3 (08:25→21:12)
[2017-10-12] MEDS: Saccharomyces boulardii 250 MG CAP PO SCH (08:25)
[2017-10-12] MEDS: Sodium Chloride 0.9% 1,000 ML IV SCH ×3 (08:26→21:54)
[2017-10-12] MEDS: predniSONE 20 MG TAB PO SCH ×2 (08:26→21:11)
[2017-10-12] MEDS: Citrucel 500 MG TAB PO SCH (08:26)
[2017-10-12] MEDS: Senokot S 8.6-50 MG TAB PO SCH ×2 (08:26→21:12)
[2017-10-12] MEDS: Bisacodyl 10 MG SUPP PR SCH (08:28)
[2017-10-12] MEDS: Sodium Chloride 0.65% Nasal 44 ML BOT EA NARE PRN (08:29)
[2017-10-12] MEDS: GoLYTELY 4,000 ml Bottle PO SCH ×2 (08:30→20:57)
--- NOTE | 2017-10-12 09:19 | PRG ---
DATE OF SERVICE: 10/12/2017 This morning she says stomach is better. Tongue is still sore, but she is no longer short of breath. I think she is better. Her white count was elevated to 40,000. PHYSICAL EXAMINATION: VITAL SIGNS: Sats 100% on 2 liters, temperature 97, blood pressure 110/74. CHEST: Chest reveals decreased breath sounds without any wheezing. CARDIAC: Normal S1, S2. ABDOMEN: Soft, no masses. IMPRESSION: 1. Chronic obstructive pulmonary disease exacerbation, bronchitis. 2. Abdominal pain, nausea. 3. Thrush. PLAN: Avoid unnecessary antibiotics. Continue aggressive PT and supportive care. DISPOSITION: As per primary care physician. I will follow.
--- NOTE | 2017-10-12 11:24 | RAD ---
ACUTE ABDOMINAL SERIES: Indication: Abdominal pain. FINDINGS: There is severe emphysema. No focal consolidation is noted. No pneumoperitoneum is noted. There are s ome air fluid levels seen within the colon. Small bowel is of normal caliber. There are scattered vas cular calcifications. There is mild scoliosis. There is diffuse osteopenia. IMPRESSION: 1. Air fluid levels seen within the region of the colon can be seen with diarrhea or prior enema. The re is no overt obstructive changes at the small bowel. 2. Chronic lung changes without acute cardiopulmonary abnormality. 3. There has been significant improvement in the amount of retained stool within the colon. Mild to m oderate retained stool is still present within the left hemicolon when compared to the prior dated . POS: [facility]
[2017-10-12] MEDS ORDERED: Iopamidol 370 76% 100 ML VIAL ONE (13:04)
--- NOTE | 2017-10-12 15:45 | CT ---
CT OF THE ABDOMEN AND PELVIS WITH IV CONTRAST 10/12/17 INDICATION: 82-year-old female with right sided abdominal pain, increasing white count. The patient has surgical history of appendectomy and hysterectomy. FINDINGS: No CT comparisons are available. There is bronchiectasis involving both lower lobes with areas of tree-in-bud type nodularity likely r elated to peripheral mucous plugging or bronchiolitis. There are calcified granuloma within the spleen and liver. The pancreas and adrenal glands are normal appearing. The kidneys are normal appearing. There is some small focal fatty infiltration near the falciform ligament of the liver. There are scattered vascula r calcifications involving the abdominopelvic vasculature. There is prominent wall thickening involving the rectum and colon. This improves at the level of the splenic flexure but involves the descending colon and sigmoid colon. The transverse colon appears wit hin normal limits. The cecum appears within normal limits. The small bowel is of normal caliber. No d rainable fluid collection is evident. There is mild free fluid present within the pelvis. There is h yperdense wall thickening involving the rectus abdominis musculature seen involving the lower abdomen on image 54 of series 2 measuring 2.5 cm left of midline. An additional hyperdense collection is see n within the right rectus musculature on image 48 of series 2 right of midline measuring 4.7 cm. There is diffuse osteopenia. There is scattered degenerative and osteoarthritic change. There is chirag drocalcinosis seen within the symphysis pubis as well as within the acetabular labrum which can be se en due to degenerative changes; however, can be also seen with CPPD deposition disease. There is prom inent dextroscoliosis of the lumbar spine. IMPRESSION: 1. Findings of proctocolitis. 2. Rectus sheath intramuscular hematomas involving the lower abdomen. 3. Mild free fluid within the pelvis. 4. Findings of granulomatous disease. 5. Other chronic findings as above. POS: [facility]
[2017-10-12] MEDS: Sodium Chloride 0.9% 500 ML IV SCH ×2 (15:47→15:57)
[2017-10-12] MEDS: traMADol HCl 50 MG TAB PO PRN (15:56)
--- NOTE | 2017-10-12 17:43 | PRG ---
DATE OF SERVICE: 10/12/2017 SUBJECTIVE: Ms. Glass has developed worsening abdominal pain. A CT of the abdomen and pelvis was done today which showed rectus muscle hematoma and distal rectosigmoid thickening. C. diff test was negative. She is currently feeling better a little bit. She still has some abdominal tenderness. She has developed stomatitis probably herpetic stomatitis. Breathing situation has improved. OBJECTIVE: VITAL SIGNS: T-max 98.8, BP 120/67, chronically ill-appearing, but no acute distress. Oral cavity w ith herpetic stomatitis. LUNGS: With distant lung sounds. No wheezing or crackles. CARDIOVASCULAR: S1, S2, regular rate. ABDOMEN: Soft with mild tenderness in the midline. Bowel sounds are present. She is able to standu p and ambulate with assistance. LABORATORY DATA: White cell count jumped to 47,000, hemoglobin 12, platelets 493 with 92% neutrophil s. Repeat white cell count 40,000 and again with the similar neutrophil differential. Creatinine 1. 13 and magnesium 2.8, alkaline phosphatase 198 with albumin 3.2. C. diff antigen and toxin in the [facility] was negative. CT abdomen and pelvis with thickening of the rectum and colon, which improves at t he level of the splenic flexure, transverse colon within normal limits. There is a thickening of the rectus abdominis likely due to hematoma. CURRENT MEDICATIONS: Include inhalers, Catapres, Lovenox, Diflucan, nystatin, ondansetron, pantopraz ole, saccharomyces, and tramadol. ASSESSMENT AND DISCUSSION: Chronic obstructive pulmonary disease with bronchiectasis and influenza B infection with decompensation. Now, she has developed complications including herpetic stomatitis a s well as the abdominal rectus muscle hematoma, which is causing the abdominal pain. She has a thick ening of the distal rectosigmoid and descending colon associated with severe constipation, which has improved now. Stercoral colitis is a possibility and she also has developed leukemoid reaction, but no evidence of acute abdomen at this point in time. We will add acyclovir to management. We will gi ve it intravenously for the time being and eventually transitioned to oral. Continue monitoring CBC progression.
--- NOTE | 2017-10-12 18:23 | PRG ---
DATE OF SERVICE: 10/12/2017 SUBJECTIVE: Ms. Glass has had two bowel movements so far today, one of them was quite large with this she has had significant improvement in her abdominal pain and says her nausea has minimal, appet ite is still not very good. There has been no mention of melena or hematochezia though I did not see the bowel movements. Her white blood cell count went up drastically this morning 47, so she underwe nt a CT of the abdomen and pelvis and this demonstrated a couple of large rectus sheath hematoma was in the anterior abdominal wall. There is also some wall thickening of the colon, which includes the rectum, sigmoid colon, and descen ding colon. OBJECTIVE: VITAL SIGNS: Temperature 98.8, pulse 86, blood pressure 116/60, 100% oxygen saturation on 2 liters b y nasal cannula. GENERAL: No acute distress. HEART: Regular rate and rhythm. LUNGS: Clear to auscultation bilaterally. ABDOMEN: Bowel sounds present, soft, tender to palpation along the anterior abdomen, but no guarding or rebound tenderness. EXTREMITIES: No peripheral edema. LABORATORY STUDIES: Sodium 129, potassium 4.6, BUN 37, creatinine 1.13, total bilirubin 0.8, alkalin e phosphatase 198, AST 20, ALT 26. WBC up to 40.4, hemoglobin 12.0, platelets 471. ASSESSMENT AND PLAN: 1. Abdominal pain, a bit improved today. 2. Constipation, acute, now feeling quite a bit better after a couple of bowel movements today. 3. Rectus sheath hematoma. 4. Abnormal CT scan of the colon, showing thickening of the rectum, sigmoid, and descending colon. This elevation in white count was quite severe overnight. The CT showed some hematomas to the anteri or abdominal wall. This could certainly be driving most of her abdominal pain. I believe the consti pation has also played a factor. Thankfully, pain is improving and she has started having bowel move ments again. The colon wall thickening on the CT scan may not be significant here. She is not havin g any colitic symptoms, and notes C. difficile was negative. I still think in her case the potential risk of putting her through colonoscopy outweigh the potential benefits at this time. Hopefully, he r diet can be slowly advanced as tolerated over the next few days. Continue with bowel regimen.
[2017-10-12] MEDS ORDERED: cefTRIAXone\\ROCEPHIN 1 GM in Sodium Chloride 0.9% 100 ML IVPB SCH (20:00)
[2017-10-12] MEDS ORDERED: cefTRIAXone\\ROCEPHIN 1 GM, Syringe 0.4 ML in Sterile Water 9.6 ML SLOW IVP SCH (20:00)
[2017-10-12] MEDS: Acyclovir 400 mg Tablet PO SCH (21:11)
[2017-10-12] MEDS: Acetaminophen 500 MG TAB PO PRN (21:25)
--- NOTE | 2017-10-12 21:48 | PDOC.PN ---
- Subjective Encounter Start Date: 10/12/17 Encounter Start Time: 11:00 Patient seen and examined. Abd pain worsening. Had BMs after [place] No overnight events - Objective MAR Reviewed: Yes Vital Signs & Weight: Vital Signs (12 hours) Temp Pulse Resp BP Pulse Ox 10/12/17 18:56 98 10/12/17 18:52 98 10/12/17 15:44 98.8 F 86 18 116/60 100 10/12/17 11:09 97.6 F 89 16 120/67 95 Weight Admit Weight 123 lb 12.8 oz Weight 127 lb 7.999 oz I&O: 10/11/17 10/12/17 10/13/17 06:59 06:59 06:59 Intake Total 435 253 4600 Output Total 2000 400 Balance -4611 113 0194 Result Diagrams: 10/12/17 05:33 10/12/17 04:54 Radiology Reviewed by me: Yes (CT abd - colitis/rectus sheath hematoma) EKG Reviewed by me: Yes (Tele SR) Phys Exam - Physical Examination Mild distress due to abd pain Respiratory: no wheezing, no rales Scat rhonchi, Symmetrical Cardiovascular: RRR, no rub no heaves/pulsations Gastrointestinal: soft, positive bowel sounds mild-mod gen tend, no rebound/guarding Musculoskeletal: no edema Neurological: non-focal, moves all 4 limbs Psychiatric: A&O x 3 Dx/Plan - Plan DVT proph w/SCDs IMPRESSION: 1. Abd pain - persistent - ?Stercoral colitis 2. Acute on Chronic Resp failure with hypoxia due to COPD exacerbation/ Influenza B/Bronchiectasis exacerbation 3. Metabolic alkalosis - prob due to either contraction alkalosis vs CO2 retention 4. Severe Leucocytosis prob due to colitis vs Leukemoid reaction - acute abd ruled out 5. Rhabdomyolysis /Physical deconditioning/Hyponatremia/Chronic pain syndrome/ Chronic Anemia/?Moderate Protein Calorie malnutrion / CKD 2 / Oral thrush/ Cholelithiasis / Herpetic stomatitis/Elevated troponins due to demand ischemia PLAN: * GI/ID following - Plan d/w with both ID/GI * Cdiff negative * Add Flagyl * On Fluconazole per Pulm * DC Diamox * Cont PPI * Cont current meds as below * Await placement to SNF * AM labs Review of Systems - Review of Systems Respiratory: negative: Cough, Dry, Shortness of Breath, Hemoptysis, SOB with Excertion, Pleuritic Pain, Sputum, Wheezing Cardiovascular: negative: chest pain, palpitations, orthopnea, paroxysmal nocturnal dyspnea, edema, light headedness - Medications/Allergies Allergies/Adverse Reactions: Allergies Allergy/AdvReac Type Severity Reaction Status Date / Time codeine AdvReac Intermediate Nausea Verified 10/10/17 20:25 Medications: Current Medications Acetaminophen (Tylenol) 1,000 mg PO Q6H PRN PRN Reason: Headache/Fever or Mild Pain Last Admin: 10/12/17 21:25 Dose: 1,000 mg Acetaminophen/Aspirin/Caffeine (Excedrin Migraine) 2 tab PO Q6H PRN PRN Reason: Headache Last Admin: 10/11/17 02:17 Dose: 2 tab Acyclovir (Zovirax) 400 mg PO TID [facility] Last Admin: 10/12/17 21:11 Dose: 400 mg Albuterol Sulfate (Ventolin) 2.5 mg NEB Q2H PRN PRN Reason: Dyspnea/Wheezing/SOB Albuterol/Ipratropium (Duoneb) 3 ml NEB [id number] [facility] Last Admin: 10/12/17 18:56 Dose: 3 ml Alprazolam (Xanax) 0.25 mg PO TIDPRN PRN PRN Reason: Anxiety Last Admin: 10/11/17 20:49 Dose: 0.25 mg Benzonatate (Tessalon) 200 mg PO Q6H PRN PRN Reason: Cough Last Admin: 10/06/17 21:01 Dose: 200 mg Clonidine (Catapres) 0.1 mg PO Q4H PRN PRN Reason: Systolic BP > 180 Clonidine (Catapres) 0.1 mg PO Q4H PRN PRN Reason: Systolic BP > 180 Docusate Sodium (Colace) 100 mg PO BID [facility] Fluconazole (Diflucan) 100 mg PO DAILY [facility] Last Admin: 10/12/17 08:25 Dose: 100 mg Guaifenesin (Mucinex) 600 mg PO Q12HR [facility] Last Admin: 10/12/17 21:12 Dose: 600 mg Hydralazine HCl (Apresoline) 10 mg SLOW IVP Q4H PRN PRN Reason: Systolic BP > 180 Metronidazole 500 mg/ Device 100 mls @ 100 mls/hr IVPB Q8HR [facility] Stop: 10/12/17 23:59 Last Admin: 10/12/17 21:11 Dose: 100 mls Ceftriaxone Sodium 1 gm/ (Syringe 0.4 ml/ Sterile Water) 10 mls @ 120 mls/hr SLOW IVP 2000 [facility] Stop: 10/12/17 23:59 Last Admin: 10/12/17 21:11 Dose: 10 mls Sodium Chloride (Normal Saline 0.9%) 1,000 mls @ 75 mls/hr IV .[id number] [facility] Methylcellulose (Citrucel) 500 mg PO BID [facility] Metronidazole (Flagyl) 500 mg PO TID [facility] Mometasone Furoate/Formoterol Fumar (Dulera 200 Mcg/5 Mcg Inhaler) 2 puff INH BID-RT [facility] Last Admin: 10/12/17 18:52 Dose: 2 puff Nystatin (Mycostatin) 500,000 units SSW TID [facility] Last Admin: 10/12/17 21:12 Dose: 500,000 units Ondansetron HCl (Zofran Odt) 4 mg PO Q6H PRN PRN Reason: Nausea/Vomiting Last Admin: 10/11/17 19:40 Dose: 4 mg Ondansetron HCl (Zofran) 4 mg IVP Q6H PRN PRN Reason: Nausea/Vomiting Last Admin: 10/10/17 05:49 Dose: 4 mg Pantoprazole Sodium (Protonix) 40 mg PO DAILY [facility] Last Admin: 10/12/17 08:26 Dose: 40 mg Polyethylene Glycol (Miralax) 17 gm PO DAILY [facility] Prednisone (Prednisone) 20 mg PO BID [facility] Last Admin: 10/12/17 21:11 Dose: 20 mg Promethazine HCl/Codeine (Phenergan/Codeine Syrup) 5 ml PO Q4H PRN PRN Reason: Cough Last Admin: 10/11/17 08:39 Dose: 5 ml Saccharomyces Boulardii (Florastor) 250 mg PO DAILY [facility] Last Admin: 10/12/17 08:25 Dose: 250 mg Senna/Docusate Sodium (Senokot S) 2 tab PO BID [facility] Last Admin: 10/12/17 21:12 Dose: Not Given Sodium Biphosphate/Sodium Phosphate (Fleet Enema) 133 ml [place] Q24H PRN PRN Reason: Constipation Last Admin: 10/11/17 18:44 Dose: 133 ml Sodium Chloride (Flush - Normal Saline) 10 ml IVF Q12HR [facility] Last Admin: 10/12/17 21:12 Dose: Not Given Sodium Chloride (Flush - Normal Saline) 10 ml IVF PRN PRN PRN Reason: Saline Flush Last Admin: 10/12/17 21:15 Dose: 10 ml Sodium Chloride ([place] Nasal [place] 0.65%) 0 ml EA NARE TID PRN PRN Reason: Nasal Congestion Last Admin: 10/12/17 08:29 Dose: 1 spr Throat Lozenges (Cepastat Lozenges) 1 caio PO Q2H PRN PRN Reason: Sore Throat Last Admin: 10/10/17 09:08 Dose: 1 caio Tramadol HCl (Ultram) 50 mg PO Q6H PRN PRN Reason: Pain Last Admin: 10/12/17 15:56 Dose: 50 mg
[2017-10-13] MEDS: Cepastat Lozenges 1 LOZ PO PRN ×2 (02:27→09:56)
[2017-10-13] MEDS: Sodium Chloride 0.65% Nasal 44 ML BOT EA NARE PRN ×2 (02:27→09:51)
[2017-10-13] MEDS: traMADol HCl 50 MG TAB PO PRN ×3 (02:32→16:35)
[2017-10-13 05:40] LABS: ALT (SGPT) 18 U/L (8-55); AST (SGOT) 15 U/L (5-34); Albumin 2.7 g/dL (3.4-4.8); Alkaline Phosphatase 152 U/L (40-150); Anion Gap 9 mmol/L (10-20); BUN (Urea Nitrogen) 40 mg/dL (9.8-20.1); Bilirubin, Total 0.4 mg/dL (0.2-1.2); Calc. Creatinine Clearance 47 mL/min (70-130); Calcium 8.3 mg/dL (7.8-10.44); Carbon Dioxide 29 mmol/L (23-31); Chloride 95 mmol/L (98-107); Estimated GFR-MDRD 63; Globulin 2.3 g/dL (2.4-3.5); Glucose 117 mg/dL (83-110); Magnesium 2.5 mg/dL (1.6-2.6); Potassium 5.1 mmol/L (3.5-5.1); Sodium 128 mmol/L (136-145)
[2017-10-13 05:52] LABS: Band 3 % (5-11); Lymphocytes 6 % (21-51); MDiff Complete? YES; Mean Corpuscular HGB CONC 30.6 g/dL (32.0-36.0); Mean Corpuscular Hemoglobin 26.4 pg (27.0-31.0); Mean Corpuscular Volume 86.2 fl (81.0-99.0); Mean Platelet Volume 6.5 fL (7.4-10.4); Monocytes 2 % (0-10); Neutrophil 89 % (42-75); Platelet Count 399 thou/uL (130-400); RBC Distribution Width 12.6 % (11.5-14.5); White Blood Cell (WBC) Count 18.2 thou/uL (4.8-10.8)
[2017-10-13] MEDS: Mometasone/Formoterol 120 PUFF INHALER INH SCH (08:32)
[2017-10-13] MEDS: Polyethylene Glycol 3350 17 GM Packet PO SCH (09:48)
[2017-10-13] MEDS: guaiFENesin ER 600 MG TAB PO SCH ×2 (09:52→21:00)
[2017-10-13] MEDS: Citrucel 500 MG TAB PO SCH ×2 (09:53→21:00)
[2017-10-13] MEDS: Docusate 100 MG CAP PO SCH ×2 (09:53→21:01)
[2017-10-13] MEDS: metroNIDAZOLE 500 MG TAB PO SCH ×3 (09:53→21:00)
[2017-10-13] MEDS: Fluconazole 100 MG TAB PO SCH (09:53)
[2017-10-13] MEDS: Saccharomyces boulardii 250 MG CAP PO SCH (09:54)
[2017-10-13] MEDS: Senokot S 8.6-50 MG TAB PO SCH ×2 (09:54→21:01)
[2017-10-13] MEDS: Acyclovir 400 mg Tablet PO SCH ×3 (09:54→21:00)
[2017-10-13] MEDS: predniSONE 20 MG TAB PO SCH (10:09)
[2017-10-13] MEDS: Sodium Chloride 0.9% 1,000 ML IV SCH (10:19)
[2017-10-13] MEDS: Aluminum & Magnesium Hydroxide 60 ML, diphenhydrAMINE 150 MG, Lidocaine 2% Viscous Solu... SSW PRN ×8 (12:52→18:23)
--- NOTE | 2017-10-13 15:26 | PRG ---
DATE OF SERVICE: 10/13/2017 SUBJECTIVE: She is now being on monitored bed. She is complaining of sore throat, otherwise has no other complaints to offer. Her abdominal pain is better. OBJECTIVE: VITAL SIGNS: Reveals sats are 99% on 2 liters, temperature 98.6, blood pressure 126/62. CHEST: Decreased breath sounds without any wheezing. CARDIAC: Normal S1, S2. ABDOMEN: Soft, no masses. LABORATORY DATA: Sodium 128. Lytes are normal. White count 18,000. IMPRESSION: 1. Abdominal pain, resolved. 2. Severe chronic obstructive pulmonary disease, bronchitis. No evidence of any pneumonia, hematoma anterior abdominal wall as of yesterday. Agree with avoiding, aggressive antibiotics. DISPOSITION: Hopefully, she can be discharged home in the next several days. I am going to give her Hurricaine wash for her mouth pain.
--- NOTE | 2017-10-13 15:27 | PRG ---
DATE OF SERVICE: 10/13/2017. SUBJECTIVE: Ms. Glass says she is feeling a lot better today in regards to abdominal pain, it is really not bothering her at all. She is tolerating her clear liquid diet, drinking some Ensure with no nausea or vomiting. She had several bowel movements yesterday though none today. Her white count came down to 18 from 40 yesterday. OBJECTIVE: VITAL SIGNS: Temperature 97.7, pulse 94, blood pressure 111/61, 98% oxygen saturation on room air. GENERAL: No acute distress. HEART: Regular rate and rhythm. LUNGS: Clear to auscultation bilaterally. ABDOMEN: Bowel sounds present, soft, minimal tenderness to palpation throughout. No guarding, rebou nd, or tenderness. EXTREMITIES: No peripheral edema. LABORATORY STUDIES: WBC 18.2, hemoglobin 9.0, platelets 399. Sodium 128, potassium 5.1, BUN 40, cre atinine 0.87. ASSESSMENT AND PLAN: 1. Abdominal pain, improving. 2. Rectus sheath hematoma. 3. Constipation, acute, improving. 4. Nausea, resolved. She is tolerating clear liquids and abdominal pain has improved. She has had multiple good bowel mov ements. I would advance her diet as tolerated. Continue with bowel regimen. The patient has repeat edly declined any endoscopic exam, and I think that is reasonable given her wishes, her age, and yann rbidities as well as a symptomatic improvement at this point. GI will sign off at this time, but please call back if there are questions or concerns. Dr. Mathews is on-call for GI this weekend.
[2017-10-13] MEDS: Nystatin 500,000 UNITS/5 ML UDCUP SSW SCH (19:37)
--- NOTE | 2017-10-13 21:48 | PDOC.PN ---
- Subjective Encounter Start Date: 10/13/17 Encounter Start Time: 14:00 Patient seen and examined. Abd pain improving. No overnight events - Objective MAR Reviewed: Yes Vital Signs & Weight: Vital Signs (12 hours) Temp Pulse Resp BP BP BP Pulse Ox 10/13/17 18:52 92 16 96 10/13/17 15:42 84 16 10/13/17 15:23 129/63 10/13/17 15:15 97.8 F 84 20 142/70 H 96 10/13/17 11:00 97.7 F 94 22 H 111/61 98 Weight Admit Weight 123 lb 12.8 oz Weight 127 lb 7.999 oz I&O: 10/12/17 10/13/17 10/14/17 06:59 06:59 06:59 Intake Total 100 3040 2200 Output Total 700 Balance 100 2340 2200 Result Diagrams: 10/14/17 05:06 10/14/17 05:06 EKG Reviewed by me: Yes (Tele SR) Phys Exam - Physical Examination Constitutional: NAD Respiratory: no wheezing, no rhonchi Cardiovascular: RRR, no rub Gastrointestinal: soft, positive bowel sounds mild gen tend Musculoskeletal: no edema Neurological: moves all 4 limbs Dx/Plan - Plan DVT proph w/SCDs IMPRESSION: 1. Abd pain - due to Colitis ?Stercoral colitis - improving 2. Acute on Chronic Resp failure with hypoxia due to COPD exacerbation/ Influenza B/Bronchiectasis exacerbation 3. Metabolic alkalosis - prob due to either contraction alkalosis vs CO2 retention 4. Severe Leucocytosis prob due to colitis vs Leukemoid reaction - acute abd ruled out 5. Rhabdomyolysis /Physical deconditioning/Hyponatremia/Chronic pain syndrome/ Chronic Anemia/?Moderate Protein Calorie malnutrion / CKD 2 / Oral thrush/ Cholelithiasis / Herpetic stomatitis on Acyclovir and Magic Mouth wash/Elevated troponins due to demand ischemia PLAN: * Cont Flagyl * On Fluconazole per Pulm * Cont PPI * Cont current meds as below * SNF placement prob in 2 days if stable * AM labs Review of Systems - Review of Systems Respiratory: Cough, Dry. negative: Shortness of Breath, Hemoptysis, SOB with Excertion, Pleuritic Pain, Sputum, Wheezing Cardiovascular: negative: chest pain, palpitations, orthopnea, paroxysmal nocturnal dyspnea, edema, light headedness - Medications/Allergies Allergies/Adverse Reactions: Allergies Allergy/AdvReac Type Severity Reaction Status Date / Time codeine AdvReac Intermediate Nausea Verified 10/10/17 20:25 Medications: Current Medications Acetaminophen (Tylenol) 1,000 mg PO Q6H PRN PRN Reason: Headache/Fever or Mild Pain Last Admin: 10/12/17 21:25 Dose: 1,000 mg Acetaminophen/Aspirin/Caffeine (Excedrin Migraine) 2 tab PO Q6H PRN PRN Reason: Headache Last Admin: 10/11/17 02:17 Dose: 2 tab Acyclovir (Zovirax) 400 mg PO TID [facility] Last Admin: 10/13/17 21:00 Dose: 400 mg Albuterol Sulfate (Ventolin) 2.5 mg NEB Q2H PRN PRN Reason: Dyspnea/Wheezing/SOB Albuterol/Ipratropium (Duoneb) 3 ml NEB [id number] [facility] Last Admin: 10/13/17 18:52 Dose: 3 ml Alprazolam (Xanax) 0.25 mg PO TIDPRN PRN PRN Reason: Anxiety Last Admin: 10/11/17 20:49 Dose: 0.25 mg Benzonatate (Tessalon) 200 mg PO Q6H PRN PRN Reason: Cough Last Admin: 10/06/17 21:01 Dose: 200 mg Clonidine (Catapres) 0.1 mg PO Q4H PRN PRN Reason: Systolic BP > 180 Al Hydroxide/Mg Hydroxide 60 ml/ Diphenhydramine HCl 150 mg / Lidocaine HCl 60 ml/Nystatin 6,000,000 units 0 ml SSW PRN PRN PRN Reason: Mouth Irritation Last Admin: 10/13/17 18:23 Dose: 10 ml Docusate Sodium (Colace) 100 mg PO BID [facility] Last Admin: 10/13/17 21:01 Dose: Not Given Fluconazole (Diflucan) 100 mg PO DAILY [facility] Last Admin: 10/13/17 09:53 Dose: 100 mg Guaifenesin (Mucinex) 600 mg PO Q12HR [facility] Last Admin: 10/13/17 21:00 Dose: 600 mg Hydralazine HCl (Apresoline) 10 mg SLOW IVP Q4H PRN PRN Reason: Systolic BP > 180 Sodium Chloride (Normal Saline 0.9%) 1,000 mls @ 75 mls/hr IV .[id number] [facility] Last Admin: 10/13/17 10:19 Dose: 1,000 mls Methylcellulose (Citrucel) 500 mg PO BID [facility] Last Admin: 10/13/17 21:00 Dose: 500 mg Metronidazole (Flagyl) 500 mg PO TID [facility] Last Admin: 10/13/17 21:00 Dose: 500 mg Ondansetron HCl (Zofran Odt) 4 mg PO Q6H PRN PRN Reason: Nausea/Vomiting Last Admin: 10/11/17 19:40 Dose: 4 mg Ondansetron HCl (Zofran) 4 mg IVP Q6H PRN PRN Reason: Nausea/Vomiting Last Admin: 10/10/17 05:49 Dose: 4 mg Pantoprazole Sodium (Protonix) 40 mg PO DAILY [facility] Last Admin: 10/13/17 09:54 Dose: 40 mg Polyethylene Glycol (Miralax) 17 gm PO DAILY [facility] Last Admin: 10/13/17 09:48 Dose: 17 gm Prednisone (Prednisone) 20 mg PO DAILY [facility] Saccharomyces Boulardii (Florastor) 250 mg PO DAILY [facility] Last Admin: 10/13/17 09:54 Dose: 250 mg Senna/Docusate Sodium (Senokot S) 2 tab PO BID [facility] Last Admin: 10/13/17 21:01 Dose: Not Given Sodium Biphosphate/Sodium Phosphate (Fleet Enema) 133 ml [place] Q24H PRN PRN Reason: Constipation Last Admin: 10/11/17 18:44 Dose: 133 ml Sodium Chloride (Flush - Normal Saline) 10 ml IVF Q12HR [facility] Last Admin: 10/13/17 21:39 Dose: Not Given Sodium Chloride (Flush - Normal Saline) 10 ml IVF PRN PRN PRN Reason: Saline Flush Last Admin: 10/12/17 21:15 Dose: 10 ml Sodium Chloride ([place] Nasal [place] 0.65%) 0 ml EA NARE TID PRN PRN Reason: Nasal Congestion Last Admin: 10/13/17 09:51 Dose: 1 spr Throat Lozenges (Cepastat Lozenges) 1 caio PO Q2H PRN PRN Reason: Sore Throat Last Admin: 10/13/17 09:56 Dose: 1 caio Tramadol HCl (Ultram) 50 mg PO Q6H PRN PRN Reason: Pain Last Admin: 10/13/17 16:35 Dose: 50 mg
[2017-10-14] MEDS: traMADol HCl 50 MG TAB PO PRN ×3 (00:59→19:29)
[2017-10-14] MEDS: Sodium Chloride 0.9% 1,000 ML IV SCH ×2 (01:02→17:46)
[2017-10-14] MEDS: Aluminum & Magnesium Hydroxide 60 ML, diphenhydrAMINE 150 MG, Lidocaine 2% Viscous Solu... SSW PRN ×4 (05:13)
[2017-10-14] MEDS: Acetaminophen 500 MG TAB PO PRN ×3 (05:13→23:20)
[2017-10-14 05:34] LABS: Hemoglobin 8.7 g/dL (12.0-16.0); Lymphocytes 17 % (21-51); MDiff Complete? YES; Mean Corpuscular HGB CONC 31.2 g/dL (32.0-36.0); Mean Corpuscular Hemoglobin 27.2 pg (27.0-31.0); Mean Corpuscular Volume 87.2 fl (81.0-99.0); Mean Platelet Volume 6.2 fL (7.4-10.4); Monocytes 5 % (0-10); Neutrophil 78 % (42-75); Platelet Count 394 thou/uL (130-400); RBC Distribution Width 12.8 % (11.5-14.5); Red Blood Cell (RBC) Count 3.18 mill/uL (4.20-5.40); White Blood Cell (WBC) Count 11.1 thou/uL (4.8-10.8)
[2017-10-14 06:55] LABS: ALT (SGPT) 17 U/L (8-55); AST (SGOT) 17 U/L (5-34); Albumin 2.6 g/dL (3.4-4.8); Alkaline Phosphatase 128 U/L (40-150); Anion Gap 12 mmol/L (10-20); BUN (Urea Nitrogen) 26 mg/dL (9.8-20.1); Bilirubin, Total 0.5 mg/dL (0.2-1.2); Calc. Creatinine Clearance 63 mL/min (70-130); Calcium 8.6 mg/dL (7.8-10.44); Carbon Dioxide 22 mmol/L (23-31); Chloride 102 mmol/L (98-107); Estimated GFR-MDRD 88; Globulin 2.4 g/dL (2.4-3.5); Glucose 75 mg/dL (83-110); Magnesium 1.9 mg/dL (1.6-2.6); Phosphorus 2.1 mg/dL (2.3-4.7); Potassium 4.4 mmol/L (3.5-5.1); Sodium 132 mmol/L (136-145)
[2017-10-14] MEDS: guaiFENesin ER 600 MG TAB PO SCH ×2 (09:35→20:19)
[2017-10-14] MEDS: Senokot S 8.6-50 MG TAB PO SCH ×2 (09:36→20:19)
[2017-10-14] MEDS: predniSONE 20 MG TAB PO SCH (09:36)
[2017-10-14] MEDS: Docusate 100 MG CAP PO SCH ×2 (09:37→20:19)
[2017-10-14] MEDS: Polyethylene Glycol 3350 17 GM Packet PO SCH (09:37)
[2017-10-14] MEDS: metroNIDAZOLE 500 MG TAB PO SCH ×3 (09:38→20:18)
[2017-10-14] MEDS: Citrucel 500 MG TAB PO SCH ×2 (09:38→20:18)
[2017-10-14] MEDS: Fluconazole 100 MG TAB PO SCH (09:38)
[2017-10-14] MEDS: Acyclovir 400 mg Tablet PO SCH ×3 (09:38→20:18)
[2017-10-14] MEDS: Sodium Chloride 0.65% Nasal 44 ML BOT EA NARE PRN (09:39)
[2017-10-14] MEDS: Saccharomyces boulardii 250 MG CAP PO SCH (09:51)
[2017-10-14] MEDS ORDERED: Eucerin (Mineral Oil/Petrolatum,White) 30 gm Jar TOP PRN (12:29)
[2017-10-14] MEDS: K-Phos Neutral 250 MG TAB PO SCH ×2 (12:51→17:47)
[2017-10-14] MEDS: Aluminum & Magnesium Hydroxide 60 ML, diphenhydrAMINE 150 MG, Lidocaine 2% Viscous Solu... SSP PRN ×8 (14:11→23:20)
--- NOTE | 2017-10-14 15:30 | PDOC.PN ---
- Subjective Encounter Start Date: 10/14/17 Encounter Start Time: 13:30 Patient seen and examined. No new complaints. Discomfort due to stomatitis. No overnight events - Objective MAR Reviewed: Yes Vital Signs & Weight: Vital Signs (12 hours) Temp Pulse Resp BP BP Pulse Ox 10/14/17 14:03 84 16 10/14/17 12:45 97.7 F 92 20 143/67 H 97 10/14/17 08:06 86 16 10/14/17 08:00 97.7 F 92 20 131/76 96 10/14/17 04:00 98.3 F 87 20 181/81 H 94 L Weight Admit Weight 123 lb 12.8 oz Weight 127 lb 7.999 oz I&O: 10/13/17 10/14/17 10/15/17 06:59 06:59 06:59 Intake Total 3040 2950 Output Total 700 Balance 2340 2950 Result Diagrams: 10/14/17 05:06 10/14/17 05:06 EKG Reviewed by me: Yes (Tele SR) Phys Exam - Physical Examination Constitutional: NAD Respiratory: no wheezing, no rhonchi Cardiovascular: RRR, no rub Gastrointestinal: soft, non-tender, positive bowel sounds Musculoskeletal: no edema Neurological: moves all 4 limbs Dx/Plan - Plan DVT proph w/SCDs (No Lovenox due to rectus sheath hematoma) IMPRESSION: 1. Abd pain - due to Colitis ?Stercoral colitis - improving 2. Acute on Chronic Resp failure with hypoxia due to COPD exacerbation/ Influenza B/Bronchiectasis exacerbation 3. Metabolic alkalosis - prob due to either contraction alkalosis vs CO2 retention 4. Severe Leucocytosis prob due to colitis vs Leukemoid reaction - acute abd ruled out 5. Rhabdomyolysis /Physical deconditioning/Hyponatremia/Chronic pain syndrome/ Chronic Anemia/?Moderate Protein Calorie malnutrion / CKD 2 / Oral thrush/ Cholelithiasis / Herpetic stomatitis on Acyclovir and Magic Mouth wash/Elevated troponins due to demand ischemia /Hypophosphatemia PLAN: * Replace Phosphorus * Cont Flagyl * On Fluconazole per Pulm * Cont PPI * Cont current meds as below * SNF placement prob in 2 days if stable * AM labs Laboratory Tests 10/10/17 10/13/17 10/14/17 10:30 04:47 05:06 Sodium 128 L 132 L Phosphorus 2.1 L Creatine Kinase 100 Review of Systems - Review of Systems Respiratory: Cough, Dry. negative: Shortness of Breath, Hemoptysis, SOB with Excertion, Pleuritic Pain, Sputum, Wheezing Cardiovascular: negative: chest pain, palpitations, orthopnea, paroxysmal nocturnal dyspnea, edema, light headedness - Medications/Allergies Allergies/Adverse Reactions: Allergies Allergy/AdvReac Type Severity Reaction Status Date / Time codeine AdvReac Intermediate Nausea Verified 10/10/17 20:25 Medications: Current Medications Acetaminophen (Tylenol) 1,000 mg PO Q6H PRN PRN Reason: Headache/Fever or Mild Pain Last Admin: 10/14/17 12:52 Dose: 1,000 mg Acetaminophen/Aspirin/Caffeine (Excedrin Migraine) 2 tab PO Q6H PRN PRN Reason: Headache Last Admin: 10/11/17 02:17 Dose: 2 tab Acyclovir (Zovirax) 400 mg PO TID [facility] Last Admin: 10/14/17 09:38 Dose: 400 mg Albuterol Sulfate (Ventolin) 2.5 mg NEB Q2H PRN PRN Reason: Dyspnea/Wheezing/SOB Albuterol/Ipratropium (Duoneb) 3 ml NEB [id number] [facility] Last Admin: 10/14/17 14:03 Dose: 3 ml Alprazolam (Xanax) 0.25 mg PO TIDPRN PRN PRN Reason: Anxiety Last Admin: 10/11/17 20:49 Dose: 0.25 mg Benzonatate (Tessalon) 200 mg PO Q6H PRN PRN Reason: Cough Last Admin: 10/06/17 21:01 Dose: 200 mg Calcium/Vitamin D (Caltrate 600 + Vit D) 1 tab PO BID-WM [facility] Clonidine (Catapres) 0.1 mg PO Q4H PRN PRN Reason: Systolic BP > 180 Al Hydroxide/Mg Hydroxide 60 ml/ Diphenhydramine HCl 150 mg / Lidocaine HCl 60 ml/Nystatin 6,000,000 units 0 ml SSP Q3H PRN PRN Reason: Mouth Irritation Last Admin: 10/14/17 14:11 Dose: 10 ml Cyanocobalamin (Vitamin B-12) 1,000 mcg PO DAILY [facility] Docusate Sodium (Colace) 100 mg PO BID [facility] Last Admin: 10/14/17 09:37 Dose: Not Given Fluconazole (Diflucan) 100 mg PO DAILY [facility] Last Admin: 10/14/17 09:38 Dose: 100 mg Folic Acid (Folvite) 1 mg PO DAILY [facility] Guaifenesin (Mucinex) 600 mg PO Q12HR [facility] Last Admin: 10/14/17 09:35 Dose: 600 mg Hydralazine HCl (Apresoline) 10 mg SLOW IVP Q4H PRN PRN Reason: Systolic BP > 180 Sodium Chloride (Normal Saline 0.9%) 1,000 mls @ 75 mls/hr IV .[id number] [facility] Last Admin: 10/14/17 01:02 Dose: 1,000 mls Methylcellulose (Citrucel) 500 mg PO BID [facility] Last Admin: 10/14/17 09:38 Dose: 500 mg Metronidazole (Flagyl) 500 mg PO TID [facility] Last Admin: 10/14/17 09:38 Dose: 500 mg Mineral Oil/White Petrolatum (Eucerin Cream) 0 gm TOP BIDPRN PRN PRN Reason: Dry Skin Multivitamins (Theragran) 1 tab PO DAILY [facility] Ondansetron HCl (Zofran Odt) 4 mg PO Q6H PRN PRN Reason: Nausea/Vomiting Last Admin: 10/11/17 19:40 Dose: 4 mg Ondansetron HCl (Zofran) 4 mg IVP Q6H PRN PRN Reason: Nausea/Vomiting Last Admin: 10/10/17 05:49 Dose: 4 mg Pantoprazole Sodium (Protonix) 40 mg PO DAILY [facility] Last Admin: 10/14/17 09:36 Dose: 40 mg Phosphorus (Kphos Neutral) 500 mg PO QID-[facility] Stop: 10/14/17 17:01 Last Admin: 10/14/17 12:51 Dose: 500 mg Polyethylene Glycol (Miralax) 17 gm PO DAILY [facility] Last Admin: 10/14/17 09:37 Dose: Not Given Prednisone (Prednisone) 20 mg PO DAILY [facility] Last Admin: 10/14/17 09:36 Dose: 20 mg Saccharomyces Boulardii (Florastor) 250 mg PO DAILY [facility] Last Admin: 10/14/17 09:51 Dose: 250 mg Senna/Docusate Sodium (Senokot S) 2 tab PO BID [facility] Last Admin: 10/14/17 09:36 Dose: Not Given Sodium Biphosphate/Sodium Phosphate (Fleet Enema) 133 ml [place] Q24H PRN PRN Reason: Constipation Last Admin: 10/11/17 18:44 Dose: 133 ml Sodium Chloride (Flush - Normal Saline) 10 ml IVF Q12HR [facility] Last Admin: 10/14/17 09:39 Dose: Not Given Sodium Chloride (Flush - Normal Saline) 10 ml IVF PRN PRN PRN Reason: Saline Flush Last Admin: 10/12/17 21:15 Dose: 10 ml Sodium Chloride ([place] Nasal [place] 0.65%) 0 ml EA NARE TID PRN PRN Reason: Nasal Congestion Last Admin: 10/14/17 09:39 Dose: 1 spr Throat Lozenges (Cepastat Lozenges) 1 caio PO Q2H PRN PRN Reason: Sore Throat Last Admin: 10/13/17 09:56 Dose: 1 caio Tramadol HCl (Ultram) 50 mg PO Q6H PRN PRN Reason: Pain Last Admin: 10/14/17 09:48 Dose: 50 mg
[2017-10-14] MEDS: Calcium Carbonate + Vit D 1 TAB PO SCH (17:47)
--- NOTE | 2017-10-14 18:25 | PRG ---
DATE OF SERVICE: 10/14/2017 SERVICE: Pulmonary Medicine. INTERVAL HISTORY: The patient is having a little bit of confusion on and off today. Outside of this , she is doing quite well. She is breathing comfortably. She has a cough and a rattle in of her jenny st, but is having a hard time liberating mucus. She denies chest discomfort or changes to her bowel habits. Her pain is improving. PHYSICAL EXAMINATION: VITAL SIGNS: Afebrile, pulse 95, blood pressure 126/62, respirations 20, saturation 97% on room air. GENERAL: The patient is awake, alert, in no apparent distress. LUNGS: Decent air entry. There is a prolonged expiratory phase with rhonchi and wheezing. No crack les are appreciated. HEART: Normal rate, regular. ABDOMEN: Soft. Tender to palpation is mild. No rebound or guarding. Bowel sounds are present. MUSCULOSKELETAL: No cyanosis or clubbing. There is trace pitting in the bilateral lower extremities . NEUROLOGIC: Grossly nonfocal. LABORATORY DATA: WBC 11.8 and downtrending, hemoglobin 8.7, platelets 394,000. Basic metabolic prof ile and liver function studies are moving in the right direction. Phosphorus is 2.1; however. Blood cultures x2 and C. diff antigen and toxin are unremarkable. ASSESSMENT: 1. Acute on chronic hypoxic respiratory failure. 2. Chronic obstructive pulmonary disease with acute exacerbation secondary to influenza. 3. Bronchiectasis exacerbation. 4. Abdominal pain secondary to rectus sheath hematoma. 5. Thrush. 6. Herpes lip infection. DISCUSSION AND PLAN: The patient will continue 10 days of p.o. fluconazole. Acyclovir per ID direct ion. She will need to follow up with her block engraver, Dr. Thomas in the outpatient setting i n 2-4 weeks. When she gets out of the hospital, she is to get back on her home inhalers as well as p hysiotherapy. Pulmonary will continue to follow while she remains in this location.
[2017-10-15] MEDS: traMADol HCl 50 MG TAB PO PRN (04:44)
[2017-10-15] MEDS ORDERED: Sodium Chloride 0.9% 1,000 ML IV SCH (08:48)
[2017-10-15] MEDS: Aluminum & Magnesium Hydroxide 60 ML, diphenhydrAMINE 150 MG, Lidocaine 2% Viscous Solu... SSP PRN ×12 (09:47→20:36)
[2017-10-15] MEDS: guaiFENesin ER 600 MG TAB PO SCH ×2 (09:48→20:38)
[2017-10-15] MEDS: Citrucel 500 MG TAB PO SCH ×2 (09:49→20:38)
[2017-10-15] MEDS: Fluconazole 100 MG TAB PO SCH (09:49)
[2017-10-15] MEDS: Calcium Carbonate + Vit D 1 TAB PO SCH ×2 (09:49→16:36)
[2017-10-15] MEDS: Cyanocobalamin (Vitamin B-12) 1,000 MCG TAB PO SCH (09:50)
[2017-10-15] MEDS: Saccharomyces boulardii 250 MG CAP PO SCH (09:50)
[2017-10-15] MEDS: Docusate 100 MG CAP PO SCH ×2 (09:50→20:38)
[2017-10-15] MEDS: metroNIDAZOLE 500 MG TAB PO SCH ×2 (09:51→16:36)
[2017-10-15] MEDS: Senokot S 8.6-50 MG TAB PO SCH ×2 (09:51→20:39)
[2017-10-15] MEDS: Multivit, Therapeutic 1 TAB PO SCH (09:51)
[2017-10-15] MEDS: Polyethylene Glycol 3350 17 GM Packet PO SCH (09:52)
[2017-10-15] MEDS: Folic Acid 1 MG TAB PO SCH (09:52)
[2017-10-15] MEDS: predniSONE 20 MG TAB PO SCH (09:53)
[2017-10-15] MEDS: Acyclovir 400 mg Tablet PO SCH ×3 (13:07→20:37)
--- NOTE | 2017-10-15 16:58 | PRG ---
DATE OF SERVICE: 10/15/2017 The patient is still with quite a bit of pain associated with her stomatitis. Breathing is better. No chest pain. A little bit of cough. No abdominal pain or diarrhea. Abdominal symptoms have impro tom. OBJECTIVE: VITAL SIGNS: T-max 99.1, blood pressure 130/80, pulse 80, respirations 16, O2 saturation 98% on 2 li ters nasal cannular. GENERAL: Awake and alert, still with stomatitis both in the left upper lip and the tip of the tongue . LUNGS: With diminished breath sounds. No wheezing. HEART: S1, S2, regular rate. ABDOMEN: Soft with mild tenderness, no distention anymore. EXTREMITIES: Moves all extremities equally. LABORATORY DATA: White cell count markedly down to 11,000, hemoglobin 8.7, platelets 394, 78% neutro phils. Chemistry: Sodium 132, creatinine 0.65. ASSESSMENT AND DISCUSSION: Chronic obstructive pulmonary disease with bronchiectasis, influenza B in fection and respiratory decompensation, herpes simplex stomatitis and abdominal rectus muscle hematom a. Also, severe constipation with stercoral colitis, which is improving. Patient to be transferred I believe to rehabilitation to continue acyclovir for another 7 days approximately.
--- NOTE | 2017-10-15 18:25 | PDOC.PN ---
- Subjective Encounter Start Date: 10/15/17 Encounter Start Time: 12:30 Patient seen and examined. No new complaints. No overnight events. Appetite improving. Feels better. - Objective MAR Reviewed: Yes Vital Signs & Weight: Vital Signs (12 hours) Temp Pulse Resp BP Pulse Ox 10/15/17 16:00 98.7 F 92 20 139/76 10/15/17 15:28 80 16 10/15/17 12:00 99.6 F 82 18 146/82 H 10/15/17 08:37 85 16 10/15/17 08:00 98.4 F 94 18 138/88 98 Weight Admit Weight 123 lb 12.8 oz Weight 127 lb 7.999 oz I&O: 10/14/17 10/15/17 10/16/17 06:59 06:59 06:59 Intake Total 2950 2256 237 Balance 2950 2256 237 Result Diagrams: 10/14/17 05:06 10/14/17 05:06 EKG Reviewed by me: Yes (Tele SVT earlier today) Phys Exam - Physical Examination Constitutional: NAD Respiratory: no wheezing, no rhonchi Cardiovascular: RRR, no rub Gastrointestinal: soft, non-tender, positive bowel sounds Musculoskeletal: no edema Neurological: moves all 4 limbs Dx/Plan - Plan PT/OT, DVT proph w/SCDs IMPRESSION: 1. Abd pain - due to Colitis ?Stercoral colitis - improving 2. Acute on Chronic Resp failure with hypoxia due to COPD exacerbation/ Influenza B/Bronchiectasis exacerbation 3. SVT 4. Severe Leucocytosis - improved 5. Rhabdomyolysis /Physical deconditioning/Hyponatremia/Chronic pain syndrome/ Chronic Anemia/?Moderate Protein Calorie malnutrion / CKD 2 / Oral thrush/ Cholelithiasis / Herpetic stomatitis on Acyclovir and Magic Mouth wash/Elevated troponins due to demand ischemia /Hypophosphatemia/Metabolic alkalosis PLAN: * Cont to monitor * Add low dose Cardizem for SVT * DC IVF * DC Flagyl * On Fluconazole per Pulm * On Acyclovir per ID for Herpetic stomatitis * Cont PPI * Cont current meds as below * SNF placement prob in 2 days if stable * AM labs Review of Systems - Review of Systems ENT: Mouth Pain (for herpetic stomatitis) Respiratory: negative: Cough, Dry, Shortness of Breath, Hemoptysis, SOB with Excertion, Pleuritic Pain, Sputum, Wheezing Cardiovascular: negative: chest pain, palpitations, orthopnea, paroxysmal nocturnal dyspnea, edema, light headedness, other Gastrointestinal: negative: Nausea, Vomiting, Abdominal Pain, Diarrhea, Constipation, Melena, Hematochezia - Medications/Allergies Allergies/Adverse Reactions: Allergies Allergy/AdvReac Type Severity Reaction Status Date / Time codeine AdvReac Intermediate Nausea Verified 10/10/17 20:25 Medications: Current Medications Acetaminophen (Tylenol) 1,000 mg PO Q6H PRN PRN Reason: Headache/Fever or Mild Pain Last Admin: 10/14/17 23:20 Dose: 1,000 mg Acetaminophen/Aspirin/Caffeine (Excedrin Migraine) 2 tab PO Q6H PRN PRN Reason: Headache Last Admin: 10/11/17 02:17 Dose: 2 tab Acyclovir (Zovirax) 400 mg PO TID [facility] Last Admin: 10/15/17 16:36 Dose: 400 mg Albuterol Sulfate (Ventolin) 2.5 mg NEB Q2H PRN PRN Reason: Dyspnea/Wheezing/SOB Albuterol/Ipratropium (Duoneb) 3 ml NEB [id number] [facility] Last Admin: 10/15/17 15:28 Dose: 3 ml Benzonatate (Tessalon) 200 mg PO Q6H PRN PRN Reason: Cough Last Admin: 10/06/17 21:01 Dose: 200 mg Calcium/Vitamin D (Caltrate 600 + Vit D) 1 tab PO BID-[facility] Last Admin: 10/15/17 16:36 Dose: 1 tab Clonidine (Catapres) 0.1 mg PO Q4H PRN PRN Reason: Systolic BP > 180 Al Hydroxide/Mg Hydroxide 60 ml/ Diphenhydramine HCl 150 mg / Lidocaine HCl 60 ml/Nystatin 6,000,000 units 0 ml SSP Q3H PRN PRN Reason: Mouth Irritation Last Admin: 10/15/17 13:38 Dose: 10 ml Cyanocobalamin (Vitamin B-12) 1,000 mcg PO DAILY [facility] Last Admin: 10/15/17 09:50 Dose: 1,000 mcg Diltiazem HCl (Cardizem) 30 mg PO BID [facility] Last Admin: 10/15/17 09:49 Dose: 30 mg Docusate Sodium (Colace) 100 mg PO BID [facility] Last Admin: 10/15/17 09:50 Dose: Not Given Fluconazole (Diflucan) 100 mg PO DAILY [facility] Last Admin: 10/15/17 09:49 Dose: 100 mg Folic Acid (Folvite) 1 mg PO DAILY [facility] Last Admin: 10/15/17 09:52 Dose: 1 mg Guaifenesin (Mucinex) 600 mg PO Q12HR [facility] Last Admin: 10/15/17 09:48 Dose: 600 mg Hydralazine HCl (Apresoline) 10 mg SLOW IVP Q4H PRN PRN Reason: Systolic BP > 180 Sodium Chloride (Normal Saline 0.9%) 1,000 mls @ 40 mls/hr IV .Q24H [facility] Stop: 10/16/17 04:00 Last Admin: 10/15/17 09:53 Dose: 1,000 mls Methylcellulose (Citrucel) 500 mg PO BID [facility] Last Admin: 10/15/17 09:49 Dose: 500 mg Metronidazole (Flagyl) 500 mg PO TID [facility] Last Admin: 10/15/17 16:36 Dose: 500 mg Mineral Oil/White Petrolatum (Eucerin Cream) 0 gm TOP BIDPRN PRN PRN Reason: Dry Skin Last Admin: 10/15/17 16:39 Dose: 1 applic Multivitamins (Theragran) 1 tab PO DAILY [facility] Last Admin: 10/15/17 09:51 Dose: 1 tab Ondansetron HCl (Zofran Odt) 4 mg PO Q6H PRN PRN Reason: Nausea/Vomiting Last Admin: 10/11/17 19:40 Dose: 4 mg Ondansetron HCl (Zofran) 4 mg IVP Q6H PRN PRN Reason: Nausea/Vomiting Last Admin: 10/10/17 05:49 Dose: 4 mg Pantoprazole Sodium (Protonix) 40 mg PO DAILY [facility] Last Admin: 10/15/17 09:50 Dose: 40 mg Polyethylene Glycol (Miralax) 17 gm PO DAILY [facility] Last Admin: 10/15/17 09:52 Dose: Not Given Prednisone (Prednisone) 20 mg PO DAILY [facility] Last Admin: 10/15/17 09:53 Dose: 20 mg Saccharomyces Boulardii (Florastor) 250 mg PO DAILY [facility] Last Admin: 10/15/17 09:50 Dose: 250 mg Senna/Docusate Sodium (Senokot S) 2 tab PO BID [facility] Last Admin: 10/15/17 09:51 Dose: Not Given Sodium Biphosphate/Sodium Phosphate (Fleet Enema) 133 ml MA Q24H PRN PRN Reason: Constipation Last Admin: 10/11/17 18:44 Dose: 133 ml Sodium Chloride (Flush - Normal Saline) 10 ml IVF Q12HR [facility] Last Admin: 10/15/17 09:53 Dose: Not Given Sodium Chloride (Flush - Normal Saline) 10 ml IVF PRN PRN PRN Reason: Saline Flush Last Admin: 10/12/17 21:15 Dose: 10 ml Sodium Chloride ([place] Nasal [place] 0.65%) 0 ml EA NARE TID PRN PRN Reason: Nasal Congestion Last Admin: 10/14/17 09:39 Dose: 1 spr Throat Lozenges (Cepastat Lozenges) 1 caio PO Q2H PRN PRN Reason: Sore Throat Last Admin: 10/13/17 09:56 Dose: 1 caio Tramadol HCl (Ultram) 50 mg PO Q6H PRN PRN Reason: Pain Last Admin: 10/15/17 04:44 Dose: 50 mg
[2017-10-15] MEDS: Sodium Chloride 0.9% 1,000 ML IV SCH (19:35)
[2017-10-15] MEDS: Acetaminophen 500 MG TAB PO PRN (20:39)
--- NOTE | 2017-10-15 21:22 | PRG ---
DATE OF SERVICE: 10/15/2017 SERVICE: Pulmonary Medicine. INTERVAL HISTORY: Patient is doing fine from a respiratory standpoint. Her strength is improving a little bit. She denies any current fevers, chills, nausea or vomiting. Her biggest complaint right now is headache, and a tickle in the back of her throat. Otherwise, there has been no interval mack e to her condition. PHYSICAL EXAMINATION: VITAL SIGNS: Afebrile, pulse 92, blood pressure 139/76, respirations 20, saturation 98% on 2 liters nasal cannula. GENERAL: Patient is awake, alert, in no apparent distress. LUNGS: Decent air entry. There is a prolonged expiratory phase and polyphonic wheezing. Rhonchi ar e present, but clear with cough. No crackles. HEART: Normal rate, regular. ABDOMEN: Soft, nontender, nondistended. Bowel sounds are positive. MUSCULOSKELETAL: No cyanosis or clubbing. No pitting in the bilateral lower extremities. NEUROLOGIC: Grossly nonfocal. ASSESSMENT: 1. Acute on chronic hypoxic respiratory failure. 2. Chronic obstructive pulmonary disease with acute exacerbation secondary to influenza. 3. Bronchiectasis exacerbation. 4. Abdominal pain secondary to rectus sheath hematoma. 5. Thrush. 6. Herpes lip infection. DISCUSSION AND PLAN: Since the patient is having a headache, we will give her some Excedrin per her request. I will give her throat lozenges. From my standpoint, there is nothing standing in the way of her disposition. She will go to her swing bed and hopefully regain her previously lost function. Pulmonary will continue to follow while the patient remains in house. Dr. Molina will assume care in the morning.
[2017-10-16] MEDS: traMADol HCl 50 MG TAB PO PRN ×2 (01:48→19:00)
[2017-10-16] MEDS: Acetaminophen 500 MG TAB PO PRN (05:02)
[2017-10-16 05:59] LABS: #Basophils 0.1 thou/uL (0.0-0.2); #Eosinphils 0.1 thou/uL (0.0-0.7); #Neutrophils 7.2 thou/uL (1.40-6.50); %Basophils 0.6 % (0.0-1.0); %Eosinophils 0.6 % (0.0-10.0); %Lymphocytes 19.6 % (21.0-51.0); %Monocytes 9.2 % (0.0-10.0); %Neutrophils 69.9 % (42.0-75.0); Hemoglobin 8.9 g/dL (12.0-16.0); Mean Corpuscular HGB CONC 31.1 g/dL (32.0-36.0); Mean Corpuscular Hemoglobin 26.9 pg (27.0-31.0); Mean Corpuscular Volume 86.4 fl (81.0-99.0); Mean Platelet Volume 5.9 fL (7.4-10.4); Platelet Count 506 thou/uL (130-400); RBC Distribution Width 12.9 % (11.5-14.5); Red Blood Cell (RBC) Count 3.32 mill/uL (4.20-5.40); White Blood Cell (WBC) Count 10.3 thou/uL (4.8-10.8)
[2017-10-16 06:27] LABS: Anion Gap 12 mmol/L (10-20); BUN (Urea Nitrogen) 15 mg/dL (9.8-20.1); BUN/Creatinine Ratio 25.86; Calc. Creatinine Clearance 72 mL/min (70-130); Calcium 8.5 mg/dL (7.8-10.44); Carbon Dioxide 26 mmol/L (23-31); Chloride 97 mmol/L (98-107); Estimated GFR-MDRD Greater than 90; Glucose 68 mg/dL (83-110); Magnesium 1.6 mg/dL (1.6-2.6); Phosphorus 2.3 mg/dL (2.3-4.7); Potassium 3.5 mmol/L (3.5-5.1); Sodium 131 mmol/L (136-145)
[2017-10-16 08:40] VITALS: BMI 21.6
[2017-10-16] MEDS: Saccharomyces boulardii 250 MG CAP PO SCH (09:31)
[2017-10-16] MEDS: Multivit, Therapeutic 1 TAB PO SCH (09:31)
[2017-10-16] MEDS: Cyanocobalamin (Vitamin B-12) 1,000 MCG TAB PO SCH (09:31)
[2017-10-16] MEDS: guaiFENesin ER 600 MG TAB PO SCH ×2 (09:31→21:57)
[2017-10-16] MEDS: Fluconazole 100 MG TAB PO SCH (09:31)
[2017-10-16] MEDS: Folic Acid 1 MG TAB PO SCH (09:31)
[2017-10-16] MEDS: Citrucel 500 MG TAB PO SCH ×2 (09:31→21:57)
[2017-10-16] MEDS: predniSONE 20 MG TAB PO SCH (09:31)
[2017-10-16] MEDS: Calcium Carbonate + Vit D 1 TAB PO SCH ×2 (09:31→18:09)
[2017-10-16] MEDS: Polyethylene Glycol 3350 17 GM Packet PO SCH (09:32)
[2017-10-16] MEDS: Docusate 100 MG CAP PO SCH (09:32)
[2017-10-16] MEDS: Senokot S 8.6-50 MG TAB PO SCH (09:32)
[2017-10-16] MEDS: Aluminum & Magnesium Hydroxide 60 ML, diphenhydrAMINE 150 MG, Lidocaine 2% Viscous Solu... SSP PRN ×4 (09:34)
--- NOTE | 2017-10-16 09:41 | PRG ---
DATE OF SERVICE: 10/16/2017 This morning she is still complaining that she is short of breath. She still has a sore tongue, but the ulceration looked much better on the tongue. PHYSICAL EXAMINATION: VITAL SIGNS: Her sats are 100% on 2 liters, respirations 16, temperature 97, blood pressure 116/70. CHEST: Chest reveals bilateral rhonchi, crackles and wheezing. CARDIAC: Normal S1, S2, no gallops. LABORATORY: White count 10, H&H 8 and 28, platelet count 106. Electrolytes are normal. IMPRESSION: 1. Acute and chronic respiratory failure. 2. Chronic bronchitis exacerbation. 3. Rectus sheath hematoma. 4. Thrush, much improved. PLAN: From a pulmonary standpoint of view she can be discharged home and follow up with her primary certified phlebotomist.
[2017-10-16] MEDS: Acyclovir 400 mg Tablet PO SCH ×3 (11:11→21:56)
[2017-10-16] MEDS ORDERED: PROVENTIL INHALER 6.7 G (200 INHALATIONS) INH PRN (13:00)
--- NOTE | 2017-10-16 16:06 | PDOC.PN ---
- Subjective Encounter Start Date: 10/16/17 Encounter Start Time: 13:00 Patient seen and examined. SOB on exertion. Feels weak. No overnight events - Objective MAR Reviewed: Yes Vital Signs & Weight: Vital Signs (12 hours) Pulse Resp Pulse Ox 10/16/17 12:47 91 28 H 98 10/16/17 07:47 75 16 100 Weight Admit Weight 123 lb 12.8 oz Weight 130 lb 1.6 oz I&O: 10/15/17 10/16/17 10/17/17 06:59 06:59 06:59 Intake Total 2256 1947 Output Total 1200 Balance 2256 747 Result Diagrams: 10/16/17 05:11 10/16/17 05:11 EKG Reviewed by me: Yes (Tele SR) Phys Exam - Physical Examination Constitutional: NAD Respiratory: no rales, no rhonchi Scat wheezing + Cardiovascular: RRR, no rub Gastrointestinal: soft, positive bowel sounds mild gen tenderness, no rebound Neurological: moves all 4 limbs Dx/Plan - Plan DVT proph w/SCDs IMPRESSION: 1. Acute on Chronic Resp failure with hypoxia due to COPD exacerbation/ Influenza B/Bronchiectasis exacerbation 2. Abd pain - due to Colitis ?Stercoral colitis - improving 3. SVT 4. Severe Leucocytosis - improved 5. Rhabdomyolysis /Physical deconditioning/Hyponatremia/Chronic pain syndrome/ Chronic Anemia/?Moderate Protein Calorie malnutrion / CKD 2 / Oral thrush/ Cholelithiasis / Herpetic stomatitis on Acyclovir and Magic Mouth wash/Elevated troponins due to demand ischemia /Hypophosphatemia/Metabolic alkalosis PLAN: * Cont PO Cardizem * On Fluconazole per Pulm * On Acyclovir per ID for Herpetic stomatitis * Cont current meds as below * SNF placement in AM if stable Review of Systems - Review of Systems Cardiovascular: negative: chest pain, palpitations, orthopnea, paroxysmal nocturnal dyspnea, edema, light headedness Gastrointestinal: negative: Nausea, Vomiting, Abdominal Pain, Diarrhea, Constipation, Melena, Hematochezia - Medications/Allergies Allergies/Adverse Reactions: Allergies Allergy/AdvReac Type Severity Reaction Status Date / Time codeine AdvReac Intermediate Nausea Verified 10/10/17 20:25 Medications: Current Medications Acetaminophen (Tylenol) 1,000 mg PO Q6H PRN PRN Reason: Headache/Fever or Mild Pain Last Admin: 10/16/17 05:02 Dose: 1,000 mg Acetaminophen/Aspirin/Caffeine (Excedrin Migraine) 2 tab PO Q6H PRN PRN Reason: Headache Last Admin: 10/11/17 02:17 Dose: 2 tab Acyclovir (Zovirax) 400 mg PO TID [facility] Last Admin: 10/16/17 11:11 Dose: 400 mg Albuterol Sulfate (Ventolin) 2.5 mg NEB Q2H PRN PRN Reason: Dyspnea/Wheezing/SOB Albuterol Sulfate (Proventil Hfa) 2 puff INH Q2H PRN PRN Reason: SOB &/or Wheezing Albuterol/Ipratropium (Duoneb) 3 ml NEB [id number] [facility] Last Admin: 10/16/17 12:47 Dose: 3 ml Benzonatate (Tessalon) 200 mg PO Q6H PRN PRN Reason: Cough Last Admin: 10/06/17 21:01 Dose: 200 mg Calcium/Vitamin D (Caltrate 600 + Vit D) 1 tab PO BID-[facility] Last Admin: 10/16/17 09:31 Dose: 1 tab Clonidine (Catapres) 0.1 mg PO Q4H PRN PRN Reason: Systolic BP > 180 Al Hydroxide/Mg Hydroxide 60 ml/ Diphenhydramine HCl 150 mg / Lidocaine HCl 60 ml/Nystatin 6,000,000 units 0 ml SSP Q3H PRN PRN Reason: Mouth Irritation Last Admin: 10/16/17 09:34 Dose: 10 ml Cyanocobalamin (Vitamin B-12) 1,000 mcg PO DAILY [facility] Last Admin: 10/16/17 09:31 Dose: 1,000 mcg Diltiazem HCl (Cardizem) 30 mg PO BID [facility] Last Admin: 10/16/17 09:31 Dose: 30 mg Docusate Sodium (Colace) 100 mg PO BID [facility] Last Admin: 10/16/17 09:32 Dose: Not Given Docusate Sodium (Colace) 100 mg PO BID [facility] Fluconazole (Diflucan) 100 mg PO DAILY [facility] Last Admin: 10/16/17 09:31 Dose: 100 mg Folic Acid (Folvite) 1 mg PO DAILY [facility] Last Admin: 10/16/17 09:31 Dose: 1 mg Guaifenesin (Mucinex) 600 mg PO Q12HR [facility] Last Admin: 10/16/17 09:31 Dose: 600 mg Hydralazine HCl (Apresoline) 10 mg SLOW IVP Q4H PRN PRN Reason: Systolic BP > 180 Methylcellulose (Citrucel) 500 mg PO BID [facility] Last Admin: 10/16/17 09:31 Dose: 500 mg Mineral Oil/White Petrolatum (Eucerin Cream) 0 gm TOP BIDPRN PRN PRN Reason: Dry Skin Last Admin: 10/15/17 16:39 Dose: 1 applic Multivitamins (Theragran) 1 tab PO DAILY [facility] Last Admin: 10/16/17 09:31 Dose: 1 tab Ondansetron HCl (Zofran Odt) 4 mg PO Q6H PRN PRN Reason: Nausea/Vomiting Last Admin: 10/11/17 19:40 Dose: 4 mg Ondansetron HCl (Zofran) 4 mg IVP Q6H PRN PRN Reason: Nausea/Vomiting Last Admin: 10/10/17 05:49 Dose: 4 mg Pantoprazole Sodium (Protonix) 40 mg PO DAILY [facility] Last Admin: 10/16/17 09:31 Dose: 40 mg Polyethylene Glycol (Miralax) 17 gm PO DAILY [facility] Last Admin: 10/16/17 09:32 Dose: Not Given Prednisone (Prednisone) 20 mg PO DAILY [facility] Last Admin: 10/16/17 09:31 Dose: 20 mg Saccharomyces Boulardii (Florastor) 250 mg PO DAILY [facility] Last Admin: 10/16/17 09:31 Dose: 250 mg Sodium Biphosphate/Sodium Phosphate (Fleet Enema) 133 ml MA Q24H PRN PRN Reason: Constipation Last Admin: 10/11/17 18:44 Dose: 133 ml Sodium Chloride (Flush - Normal Saline) 10 ml IVF Q12HR [facility] Last Admin: 10/16/17 09:32 Dose: Not Given Sodium Chloride (Flush - Normal Saline) 10 ml IVF PRN PRN PRN Reason: Saline Flush Last Admin: 10/12/17 21:15 Dose: 10 ml Sodium Chloride ([place] Nasal [place] 0.65%) 0 ml EA NARE TID PRN PRN Reason: Nasal Congestion Last Admin: 10/14/17 09:39 Dose: 1 spr Throat Lozenges (Cepastat Lozenges) 1 caio PO Q2H PRN PRN Reason: Sore Throat Last Admin: 10/13/17 09:56 Dose: 1 caio Tramadol HCl (Ultram) 50 mg PO Q6H PRN PRN Reason: Pain Last Admin: 10/16/17 01:48 Dose: 50 mg
[2017-10-16] MEDS: Aspirin/APAP/Caffeine Tab (Excedrin Migraine) PO PRN (16:38)
[2017-10-16] MEDS ORDERED: Docusate 100 MG CAP PO SCH (21:00)
[2017-10-17] MEDS: traMADol HCl 50 MG TAB PO PRN ×3 (04:46→21:53)
[2017-10-17] MEDS: Aluminum & Magnesium Hydroxide 60 ML, diphenhydrAMINE 150 MG, Lidocaine 2% Viscous Solu... SSP PRN ×4 (04:47)
--- NOTE | 2017-10-17 09:43 | PRG ---
DATE OF SERVICE: 10/17/2017 She is awake, alert, responsive, somewhat better. PHYSICAL EXAMINATION: VITAL SIGNS: Sats 100% on 2 liters, respirations 18, temperature 96, blood pressure 129/72. CHEST: Bilateral rhonchi. CARDIAC: Normal S1-S2. ABDOMEN: Soft, no masses. IMPRESSION: 1. Chronic obstructive pulmonary disease. 2. Bronchitis. 3. Thrush. 4. Major anxiety. PLAN: She can be discharged home and will follow up with her primary audio visual aide.
[2017-10-17] MEDS: predniSONE 20 MG TAB PO SCH (09:44)
[2017-10-17] MEDS: Citrucel 500 MG TAB PO SCH ×2 (09:44→21:08)
[2017-10-17] MEDS: Saccharomyces boulardii 250 MG CAP PO SCH (09:44)
[2017-10-17] MEDS: Cyanocobalamin (Vitamin B-12) 1,000 MCG TAB PO SCH (09:44)
[2017-10-17] MEDS: Fluconazole 100 MG TAB PO SCH (09:44)
[2017-10-17] MEDS: guaiFENesin ER 600 MG TAB PO SCH ×2 (09:44→20:37)
[2017-10-17] MEDS: Multivit, Therapeutic 1 TAB PO SCH (09:44)
[2017-10-17] MEDS: Calcium Carbonate + Vit D 1 TAB PO SCH ×2 (09:44→17:35)
[2017-10-17] MEDS: Folic Acid 1 MG TAB PO SCH (09:44)
[2017-10-17] MEDS: Acetaminophen 500 MG TAB PO PRN (09:45)
[2017-10-17] MEDS: Acyclovir 400 mg Tablet PO SCH ×3 (09:45→20:37)
[2017-10-17] MEDS: Polyethylene Glycol 3350 17 GM Packet PO SCH (09:53)
[2017-10-17] MEDS: Aspirin/APAP/Caffeine Tab (Excedrin Migraine) PO PRN (20:38)
--- NOTE | 2017-10-17 22:29 | PDOC.PN ---
- Subjective Encounter Start Date: 10/17/17 Encounter Start Time: 10:30 Patient seen and examined. No new complaints. No overnight events - Objective MAR Reviewed: Yes Vital Signs & Weight: Vital Signs (12 hours) Temp Pulse Pulse Pulse Resp BP BP 10/17/17 19:21 102 H 18 10/17/17 19:10 97.6 F 100 18 10/17/17 15:30 98.1 F 99 18 10/17/17 12:01 84 16 10/17/17 11:30 98.1 F 89 18 10/17/17 10:45 99 99 138/71 141/63 H BP Pulse Ox Pulse Ox Pulse Ox 10/17/17 19:21 97 10/17/17 19:10 144/79 H 99 10/17/17 15:30 135/73 98 10/17/17 12:01 99 10/17/17 11:30 138/71 98 10/17/17 10:45 99 100 Weight Admit Weight 123 lb 12.8 oz Weight 130 lb 8 oz I&O: 10/16/17 10/17/17 10/18/17 06:59 06:59 06:59 Intake Total 1947 1560 1500 Output Total 1200 500 Balance 747 1060 1500 Result Diagrams: 10/16/17 05:11 10/16/17 05:11 EKG Reviewed by me: Yes (Tele SR) Phys Exam - Physical Examination Constitutional: NAD Respiratory: no wheezing, no rales Scat rhonchi Cardiovascular: RRR, no rub Gastrointestinal: soft, non-tender, positive bowel sounds Musculoskeletal: no edema Dx/Plan - Plan DVT proph w/SCDs IMPRESSION: 1. Acute on Chronic Resp failure with hypoxia due to COPD exacerbation/ Influenza B/Bronchiectasis exacerbation - Completed Atbx, on Steroid taper 2. Abd pain - due to fecal imaction with Colitis ?Stercoral colitis - improved 3. SVT - on PO Cardizem 4. Severe Leucocytosis - prob due to colitis - improved 5. Rhabdomyolysis /Physical deconditioning/Hyponatremia/Chronic pain syndrome/ Chronic Anemia/?Moderate Protein Calorie malnutrion / CKD 2 / Oral thrush/ Cholelithiasis / Herpetic stomatitis on Acyclovir and Magic Mouth wash/Elevated troponins due to demand ischemia /Hypophosphatemia/Metabolic alkalosis PLAN: * Cont PO Cardizem * DC Fluconazole & Acyclovir after 5 days * Taper Steroids * Cont Magic Mouthwas at dc * Cont current meds as below * SNF placement at [facility] pending * Cont therapy Review of Systems - Review of Systems Respiratory: negative: Cough, Dry, Shortness of Breath, Hemoptysis, SOB with Excertion, Pleuritic Pain, Sputum, Wheezing Cardiovascular: negative: chest pain, palpitations, orthopnea, paroxysmal nocturnal dyspnea, edema, light headedness - Medications/Allergies Allergies/Adverse Reactions: Allergies Allergy/AdvReac Type Severity Reaction Status Date / Time codeine AdvReac Intermediate Nausea Verified 10/10/17 20:25 Medications: Current Medications Acetaminophen (Tylenol) 1,000 mg PO Q6H PRN PRN Reason: Headache/Fever or Mild Pain Last Admin: 10/17/17 09:45 Dose: 1,000 mg Acetaminophen/Aspirin/Caffeine (Excedrin Migraine) 2 tab PO Q6H PRN PRN Reason: Headache Last Admin: 10/17/17 20:38 Dose: 2 tab Acyclovir (Zovirax) 400 mg PO TID [facility] Last Admin: 10/17/17 20:37 Dose: 400 mg Albuterol Sulfate (Ventolin) 2.5 mg NEB Q2H PRN PRN Reason: Dyspnea/Wheezing/SOB Albuterol Sulfate (Proventil Hfa) 2 puff INH Q2H PRN PRN Reason: SOB &/or Wheezing Albuterol/Ipratropium (Duoneb) 3 ml NEB [id number] [facility] Last Admin: 10/17/17 19:21 Dose: 3 ml Benzonatate (Tessalon) 200 mg PO Q6H PRN PRN Reason: Cough Last Admin: 10/06/17 21:01 Dose: 200 mg Calcium/Vitamin D (Caltrate 600 + Vit D) 1 tab PO BID-[facility] Last Admin: 10/17/17 17:35 Dose: 1 tab Clonidine (Catapres) 0.1 mg PO Q4H PRN PRN Reason: Systolic BP > 180 Al Hydroxide/Mg Hydroxide 60 ml/ Diphenhydramine HCl 150 mg / Lidocaine HCl 60 ml/Nystatin 6,000,000 units 0 ml SSP Q3H PRN PRN Reason: Mouth Irritation Last Admin: 10/17/17 04:47 Dose: 10 ml Cyanocobalamin (Vitamin B-12) 1,000 mcg PO DAILY [facility] Last Admin: 10/17/17 09:44 Dose: 1,000 mcg Diltiazem HCl (Cardizem) 30 mg PO BID [facility] Last Admin: 10/17/17 20:37 Dose: 30 mg Fluconazole (Diflucan) 100 mg PO DAILY [facility] Last Admin: 10/17/17 09:44 Dose: 100 mg Folic Acid (Folvite) 1 mg PO DAILY [facility] Last Admin: 10/17/17 09:44 Dose: 1 mg Guaifenesin (Mucinex) 600 mg PO Q12HR [facility] Last Admin: 10/17/17 20:37 Dose: 600 mg Hydralazine HCl (Apresoline) 10 mg SLOW IVP Q4H PRN PRN Reason: Systolic BP > 180 Methylcellulose (Citrucel) 500 mg PO BID [facility] Last Admin: 10/17/17 21:08 Dose: Not Given Mineral Oil/White Petrolatum (Eucerin Cream) 0 gm TOP BIDPRN PRN PRN Reason: Dry Skin Last Admin: 10/15/17 16:39 Dose: 1 applic Multivitamins (Theragran) 1 tab PO DAILY [facility] Last Admin: 10/17/17 09:44 Dose: 1 tab Ondansetron HCl (Zofran Odt) 4 mg PO Q6H PRN PRN Reason: Nausea/Vomiting Last Admin: 10/11/17 19:40 Dose: 4 mg Ondansetron HCl (Zofran) 4 mg IVP Q6H PRN PRN Reason: Nausea/Vomiting Last Admin: 10/10/17 05:49 Dose: 4 mg Pantoprazole Sodium (Protonix) 40 mg PO DAILY [facility] Last Admin: 10/17/17 09:44 Dose: 40 mg Polyethylene Glycol (Miralax) 17 gm PO DAILY [facility] Last Admin: 10/17/17 09:53 Dose: Not Given Prednisone (Prednisone) 20 mg PO DAILY [facility] Last Admin: 10/17/17 09:44 Dose: 20 mg Saccharomyces Boulardii (Florastor) 250 mg PO DAILY [facility] Last Admin: 10/17/17 09:44 Dose: 250 mg Sodium Biphosphate/Sodium Phosphate (Fleet Enema) 133 ml SC Q24H PRN PRN Reason: Constipation Last Admin: 10/11/17 18:44 Dose: 133 ml Sodium Chloride (Flush - Normal Saline) 10 ml IVF Q12HR [facility] Last Admin: 10/17/17 20:37 Dose: 10 ml Sodium Chloride (Flush - Normal Saline) 10 ml IVF PRN PRN PRN Reason: Saline Flush Last Admin: 10/12/17 21:15 Dose: 10 ml Sodium Chloride ([place] Nasal [place] 0.65%) 0 ml EA NARE TID PRN PRN Reason: Nasal Congestion Last Admin: 10/14/17 09:39 Dose: 1 spr Throat Lozenges (Cepastat Lozenges) 1 caio PO Q2H PRN PRN Reason: Sore Throat Last Admin: 10/13/17 09:56 Dose: 1 acio Tramadol HCl (Ultram) 50 mg PO Q6H PRN PRN Reason: Pain Last Admin: 10/17/17 21:53 Dose: 50 mg
[2017-10-18] MEDS: traMADol HCl 50 MG TAB PO PRN (03:59)
[2017-10-18] MEDS: Aluminum & Magnesium Hydroxide 60 ML, diphenhydrAMINE 150 MG, Lidocaine 2% Viscous Solu... SSP PRN ×4 (03:59)
[2017-10-18] MEDS: Aspirin/APAP/Caffeine Tab (Excedrin Migraine) PO PRN (06:26)
[2017-10-18] MEDS: Saccharomyces boulardii 250 MG CAP PO SCH (08:18)
[2017-10-18] MEDS: Calcium Carbonate + Vit D 1 TAB PO SCH (08:18)
[2017-10-18] MEDS: guaiFENesin ER 600 MG TAB PO SCH (08:19)
[2017-10-18] MEDS: Acyclovir 400 mg Tablet PO SCH (08:19)
[2017-10-18] MEDS: Fluconazole 100 MG TAB PO SCH (08:19)
[2017-10-18] MEDS: Cyanocobalamin (Vitamin B-12) 1,000 MCG TAB PO SCH (08:19)
[2017-10-18] MEDS: Folic Acid 1 MG TAB PO SCH (08:20)
[2017-10-18] MEDS: predniSONE 20 MG TAB PO SCH (08:20)
[2017-10-18] MEDS: Multivit, Therapeutic 1 TAB PO SCH (08:20)
[2017-10-18] MEDS: Polyethylene Glycol 3350 17 GM Packet PO SCH (08:22)
[2017-10-18 08:28] VITALS: BP 145/80
--- NOTE | 2017-10-18 08:32 | PDOC.PN ---
- Subjective Encounter Start Date: 10/18/17 Encounter Start Time: 09:00 Subjective: Shortness of breath improved. No other complaints. - Objective MAR Reviewed: Yes Vital Signs & Weight: Vital Signs (12 hours) Temp Pulse Resp BP Pulse Ox 10/18/17 08:00 99 F 75 18 145/80 H 100 10/18/17 07:25 85 15 100 10/18/17 04:00 98 F 79 18 141/77 H 100 10/18/17 00:42 92 16 10/18/17 00:00 98.3 F 92 20 123/60 100 10/17/17 23:00 98.3 F 92 20 100 Weight Admit Weight 123 lb 12.8 oz Weight 130 lb 8 oz I&O: 10/17/17 10/18/17 10/19/17 06:59 06:59 06:59 Intake Total 1560 1860 Output Total 500 Balance 1060 1860 Result Diagrams: 10/16/17 05:11 10/16/17 05:11 Phys Exam - Physical Examination Constitutional: NAD HEENT: moist MMs Respiratory: wheezing present decent air movement bilaterally Cardiovascular: RRR, no significant murmur Gastrointestinal: soft, positive bowel sounds Musculoskeletal: no edema Neurological: non-focal Psychiatric: normal affect, A&O x 3 Dx/Plan (1) Acute and chronic respiratory failure with hypoxia Code(s): J96.21 - ACUTE AND CHRONIC RESPIRATORY FAILURE WITH HYPOXIA Status: Acute Comment: secondary to influenza and COPD exacerbation, improved (2) Thrush Code(s): B37.0 - CANDIDAL STOMATITIS Status: Acute Comment: on Nystatin , 5 days therapy (3) Influenza B Code(s): J10.1 - FLU DUE TO OTH IDENT INFLUENZA VIRUS W OTH RESP MANIFEST Status: Acute Comment: Tamiflu completed on 10/09/17 (4) Herpes stomatitis Code(s): B00.2 - HERPESVIRAL GINGIVOSTOMATITIS AND PHARYNGOTONSILLITIS Status : Acute Comment: on Acyclovir 10/17/17, 5 days of therapy (5) Fecal impaction Code(s): K56.41 - FECAL IMPACTION Status: Resolved Comment: abdominal pain improved - Plan cont current plan of care, PT/OT d/c to [facility] today * . - Discharge Day Encounter end time: 09:30
[2017-10-18] MEDS: Citrucel 500 MG TAB PO SCH (09:33)
[2017-10-18 10:58] VITALS: TEMP 98.1
--- NOTE | 2017-10-18 15:59 | DIS ---
PRIMARY CARE PHYSICIAN: Dr. Thomas. DIAGNOSES ON ADMISSION: 1. Acute on chronic hypoxic respiratory failure. 2. Questionable right middle lobe pneumonia. 3. Influenza B. 4. Chronic obstructive pulmonary disease exacerbation. 5. Rhabdomyolysis. 6. Dehydration. 7. Severe deconditioning. DIAGNOSES AT DISCHARGE: 1. Acute on chronic respiratory failure with hypoxia, resolved. 2. Chronic obstructive pulmonary disease exacerbation, resolved. 3. Influenza B, resolved. 4. Oral thrush. 5. Herpes stomatitis. 6. Constipation with fecal impaction has resolved. 7. Rectus sheath hematoma. PROCEDURES: 1. CT of the brain showing a question of acute on chronic right maxillary sinusitis, but no acute in tracranial abnormalities. 2. CT of the cervical spine showing no evidence of fracture. 3. X-ray of the abdomen showing constipation. 4. Ultrasound of the abdomen showing a subcentimeter mobile gallstone without any evidence of acute cholecystitis. 5. CT abdomen and pelvis showing findings of proctocolitis and a rectus sheath intramuscular hematom a involving the lower abdomen, some mild free fluid in the pelvis, some granulomatous disease and oth er chronic findings. CONSULTATIONS: 1. Pulmonology, Dr. Molina. 2. Infectious Disease, Dr. Malone. 3. Gastroenterology, Dr. Mo. PERTINENT LABORATORY DATA: White blood cell count did jump up to 47,000, down to 10,000 at discharge . Hemoglobin has remained stable for the last week and around 9. Chronically low sodium with a disc harge sodium of 131. Albumin is a little low at 3.0. SUMMARY OF HOSPITAL COURSE: This is an 82-year-old white female with known COPD, who had progressive weakness prior to admission and then fell on the floor and took about 2 hours for her to fin d her and then they called EMS. The patient was brought to the emergency room. There she was found to have influenza and a questionable pneumonia. She was admitted and Pulmonology and ID were consult ed. She did have antibiotics along with anti-flu medications. Her white blood cell count did jump u p severely at first, but then resolved over the course of the hospitalization. The patient had some abdominal pain with nausea and vomiting in the hospital. So, GI was consulted and she had imaging as above. Dr. Mo was consulted and recommended endoscopy; however, patient refused this given her co morbidities. She was treated for constipation with improvement in her bowel movements and resolution of the abdominal pain. She did have the rectus hematoma sheath discovered on her imaging, and had r esolution of her abdominal pain, so Dr. Mo deferred any further endoscopy given patient's wishes. Patient's respiratory status improved over the hospitalization and she was doing well, off oxygen at the time of discharge. She is being discharged to a swing bed in [place]. The patient did develop mouth pain during her hospitalization, and she was found to have herpes stomatitis along with some t hrush and started on treatment. DISCHARGE MANAGEMENT: Discharged to swing bed in [place]. ACTIVITIES: As tolerated. DISCHARGE DIET: Regular diet with Ensure Enlive supplements 3 times a day. Oxygen as needed to keep O2 sats up, and for shortness of breath, nebulizing treatments as needed. THERAPY: Occupational and physical therapy. DISCHARGE MEDICATIONS: 1. Pulmicort neb twice a day. 2. Tramadol as needed. 3. Brovana 1 neb twice a day. 4. Combivent 3 times a day. 5. Gentamicin Sulfate nebulizer 80 mg nebulized twice a day. 6. Prednisone 20 mg daily. 7. Mucinex 600 mg twice a day. 8. Benadryl 150 mg swish and swallow q.3 hours as needed. 9. Clonidine 0.1 mg every 4 hours as needed. 10. Fleet enema as needed. 11. Sodium chloride nasal spray, 2 sprays in each nostril 3 times a day as needed. 12. Florastor 250 mg daily. 13. MiraLax 17 grams daily. 14. Protonix 40 mg daily. 15. Zofran 4 mg as needed. 16. Multivitamin Theragran 1 tablet daily. 17. Viscous lidocaine solution 60 mL, swish and spit, every 3 hours as needed. 18. DuoNeb q.6 hours as needed. 19. Folic acid 1 mg daily. 20. Diflucan 100 mg daily. 21. Cardizem 30 mg twice a day. 22. Vitamin B12 1000 mcg daily. 23. Cepastat lozenge as needed. 24. Citrucel tablet 500 mg twice a day. 25. Caltrate 600 plus vitamin D 1 tab twice a day. 26. Tessalon Perles as needed. 27. Excedrin Migraine as needed. 28. Maalox 60 mL swish and spit q.3 hours as needed. 29. Acyclovir 400 mg 3 times a day for another 4 days. 30. Acetaminophen as needed. 31. Albuterol as needed.
== END 2017-10-18 13:58 | disposition swing bed (61) | DRG 193 ==
LOC: ERS 23:22 → 2NO 10-04 01:50 → OBSVTOIN 10-04 09:37 → IMCU/EMU 10-04 18:34 → T4-B 10-07 16:00 → 2NO 10-12 10:51 → T4-A 10-17 23:16
PROVIDERS: ADMIT Internal Medicine Infectious Disease; ATTEND Internal Medicine Infectious Disease
PROC: 5A09357 Assistance with Respiratory Ventilation, Less than 24 Consecutive Hours, Continuous Positive Airway Pressure (ICD-10-PCS; principal; 2017-10-04)
DX: J10.1 Influenza due to other identified influenza virus with other respiratory manifestations (principal); J96.21 Acute and chronic respiratory failure with hypoxia; E44.0 Moderate protein-calorie malnutrition; E87.3 Alkalosis; B37.0 Candidal stomatitis; E87.1 Hypo-osmolality and hyponatremia; J44.1 Chronic obstructive pulmonary disease with (acute) exacerbation; B00.2 Herpesviral gingivostomatitis and pharyngotonsillitis; I24.8 Other forms of acute ischemic heart disease; I47.1 Supraventricular tachycardia; M62.82 Rhabdomyolysis; E83.39 Other disorders of phosphorus metabolism; J47.1 Bronchiectasis with (acute) exacerbation; Z99.81 Dependence on supplemental oxygen; E86.0 Dehydration; G89.29 Other chronic pain; M54.9 Dorsalgia, unspecified; K56.41 Fecal impaction; S30.1XXA Contusion of abdominal wall, initial encounter; K80.20 Calculus of gallbladder without cholecystitis without obstruction; D64.9 Anemia, unspecified; N18.2 Chronic kidney disease, stage 2 (mild); Z68.21 Body mass index [BMI] 21.0-21.9, adult; Z87.891 Personal history of nicotine dependence; Z88.5 Allergy status to narcotic agent; Z88.0 Allergy status to penicillin; Z79.899 Other long term (current) drug therapy; W18.30XA Fall on same level, unspecified, initial encounter
CPT/HCPCS: 36415; 70450; 71045; 72125; 74019; 74022; 74177; 76705; 80048; 80053; 80069; 80076; 82550; 82553; 83605; 83690; 83735; 84100; 84484; 85007; 85025; 85027; 87040; 87324; 87449; 93005; 94640; 94660; 96374; A4216; G8978-GP-CJ; G8979-GP-CI; G8987-GO-CJ; G8987-GO-CK; G8988-GO-CI; J0456; J0692; J0696; J1580; J1650; J1885; J1956; J2405; J2920; J7050; J7506; J7611; J7620; J7626; Q0162

== ENCOUNTER 2018-03-20 13:48 | Outpatient (CLI) | payer MEDICARE ==
--- NOTE | 2018-03-20 16:24 | PET ---
WHOLE BODY PET CT 03/20/18 CLINICAL HISTORY: Pulmonary nodule, followup. Reference is made to several prior CT thorax exams. The most recent of which is 07/24/17. Reference a lso made to a CT of abdomen and pelvis 10/12/17. TECHNIQUE: Scintigraphic imaging utilizing F18-FDG was performed in conjunction with nondiagnostic noncontrast a ttenuation correction CT imaging from the level of the mid skull to the proximal thighs. FINDINGS: Re-demonstration of numerous bilateral opacities in addition to areas of bronchial wall thickening an d tree-in-bud nodularity. There are interspersed hypermetabolic foci within the multifocal bilateral pulmonary parenchymal nodules with SUV involving nodule of the left upper lobe at approximately 2.6, and SUV involving subpleural opacity of the right middle lobe measuring 3.7. Foci of hypermetabolic a ctivity also present involving the anterior mediastinum with associated patchy density overlying the aortic arch, with SUV of approximately 4.0. Additional multifocal mild foci of increased metabolic ac tivity are present throughout the chest bilaterally. No hypermetabolic mass or adenopathy of the abdo men and pelvis is identified. Incidental note of hypermetabolic activity at the level of the left voc al cord with mild associated redundancy, nonspecific. IMPRESSION: Numerous nodular densities do persist throughout each lung, with associated hypermetabolic activity. As these findings have demonstrated waxing and waning as well as a similar morphology including tree -in-bud nodularity on several prior CT thorax exams, these findings, collectively, likely relate to a typical infection/ inflammation. However, the possibility of underlying malignancy is not excluded wi thin any of the hypermetabolic foci, which are difficult to further discern due to the constellation of abnormalities. Recommend further clinical evaluation with pulmonary medicine consultation to inclu de laboratory assessment of bronchial lavage, as well as followup CT imaging. Incidental note of mild increased metabolic activity and redundancy of the left aspect of the glottis . Further evaluation with ENT consultation for direct visualization would prove useful. POS: JULIO CESAR
== END 2018-03-20 13:49 | disposition home or self-care (01) ==
LOC: PET 13:48
PROVIDERS: ATTEND Physician Assistant
DX: D71 Functional disorders of polymorphonuclear neutrophils (principal); J47.1 Bronchiectasis with (acute) exacerbation; J43.9 Emphysema, unspecified; R91.8 Other nonspecific abnormal finding of lung field; Z86.19 Personal history of other infectious and parasitic diseases
CPT/HCPCS: 78815; A9552